=== PATIENT | male | born 1955 | race Hispanic/Latino ===

== ENCOUNTER 2020-04-11 22:48 | Inpatient (IN) | payer OTHER ==
[~2020-04-11] VITALS: Ht 167.6 cm; Wt 60.8 kg
[2020-04-11] MEDS ORDERED: ZOSYN 3.375GM+NS 50ML 50 ML IV ONE (23:27)
[2020-04-11 23:38] LABS: BASOPHILS % (AUTO) 0.6 % (0.0-5.0); EOSINOPHILS % (AUTO) 0.6 % (0.0-8.0); HEMATOCRIT 36.9 % (42-54); LYMPHOCYTES % (AUTO) 19.8 % (21.0-51.0); MEAN CORPUSCULAR HEMOGLOBIN 30.3 pg (27.0-33.0); MEAN CORPUSCULAR HGB CONC 32.8 g/dL (32.0-36.0); MEAN CORPUSCULAR VOLUME 92.5 fL (79-99); MONOCYTES % (AUTO) 8.2 % (3.0-13.0); NEUTROPHILS % (AUTO) 70.6 % (40.0-77.0); PLATELET COUNT (AUTO) 360 K/uL (130-400); RED BLOOD CELL COUNT(AUTO) 3.99 MIL/uL (4.50-6.20); RED CELL DISTRIBUTION WIDTH 11.9 % (11.0-15.5); WHITE BLOOD COUNT (AUTO) 8.9 K/uL (4.8-10.8)
[2020-04-11 23:53] LABS: CREATININE 1.1 mg/dL (0.5-1.5); POTASSIUM 4.1 mmol/L (3.5-5.1)
[2020-04-11 23:55] LABS: INR 1.04 (0.85-1.15); PROTHROMBIN TIME 11.3 SEC (9.6-11.6)
[2020-04-11 23:56] LABS: PARTIAL THROMBOPLASTIN TIME 29.1 SEC (26.3-35.5)
[2020-04-11 23:58] LABS: ALBUMIN 4.1 g/dL (3.5-5.0); BILIRUBIN,TOTAL 0.3 mg/dL (0.2-1.0); CRP QUANTITATIVE 32.8 mg/L (0.00-9.0); TOTAL PROTEIN, SERUM 8.9 g/dL (6.0-8.3)
[2020-04-12] MEDS ORDERED: LACTULOSE 20 GM/30 ML UDCUP PO PRN (03:00)
[2020-04-12] MEDS ORDERED: ACETAMINOPHEN 325 MG TAB PO PRN ×2 (03:00)
[2020-04-12] MEDS ORDERED: TEMAZEPAM 7.5 MG CAPSULE PO PRN (03:00)
[2020-04-12] MEDS ORDERED: ONDANSETRON HCL 4 MG/2 ML VIAL IV PRN (03:00)
[2020-04-12] MEDS ORDERED: ACETAMINOPHEN-CODEINE 300/30MG TAB PO PRN ×2 (03:00)
[2020-04-12] MEDS ORDERED: HEPARIN 25000 UNITS/250 ML D5W 250 ML IV SCH (03:00)
[2020-04-12] MEDS ORDERED: HEPARIN SODIUM 5000UNIT/ML 1ML VIAL ONE ×2 (03:53→18:03)
[2020-04-12] MEDS ORDERED: HEPARIN 25000 UNITS/250 ML D5W 250 ML IV ONE (03:53)
[2020-04-12] MEDS: LISINOPRIL 5 MG TABLET PO SCH ×2 (04:15→09:00)
[2020-04-12] MEDS: METOPROLOL TARTRATE 25 MG TAB PO SCH ×3 (04:15→20:24)
[2020-04-12] MEDS ORDERED: LABETALOL 20 MG/4 ML DISP.SYRIN IV PRN (04:15)
[2020-04-12] MEDS ORDERED: LORAZEPAM 2 MG/ML 1 ML VIAL IVP PRN (04:15)
[2020-04-12] MEDS: ATORVASTATIN CALCIUM 40 MG TABLET PO SCH ×2 (04:15→20:24)
[2020-04-12] MEDS ORDERED: CHLORDIAZEPOXIDE HCL 25 MG CAP PO PRN (04:15)
[2020-04-12] MEDS ORDERED: PHARMACY COMMUNICATION MISC PRN (04:15)
[2020-04-12] MEDS ORDERED: AMOX125T PO (04:49)
[2020-04-12] MEDS ORDERED: METF-446 PO (04:49)
[2020-04-12 05:03] LABS: BASOPHILS % (AUTO) 0.5 % (0.0-5.0); EOSINOPHILS % (AUTO) 0.3 % (0.0-8.0); HEMATOCRIT 34.1 % (42-54); LYMPHOCYTES % (AUTO) 14.1 % (21.0-51.0); MEAN CORPUSCULAR HEMOGLOBIN 30.1 pg (27.0-33.0); MEAN CORPUSCULAR HGB CONC 33.4 g/dL (32.0-36.0); NEUTROPHILS % (AUTO) 79.8 % (40.0-77.0); PLATELET COUNT (AUTO) 351 K/uL (130-400); RED BLOOD CELL COUNT(AUTO) 3.79 MIL/uL (4.50-6.20); RED CELL DISTRIBUTION WIDTH 11.7 % (11.0-15.5); WHITE BLOOD COUNT (AUTO) 10.9 K/uL (4.8-10.8)
[2020-04-12 05:05] LABS: HEMOGLOBIN A1C 6.3 % (4.0-6.0)
[2020-04-12] MEDS ORDERED: LISINOPRIL 5 MG TABLET ONE (05:06)
[2020-04-12] MEDS ORDERED: ATORVASTATIN CALCIUM 40 MG TABLET ONE (05:06)
[2020-04-12] MEDS ORDERED: METOPROLOL TARTRATE 25 MG TAB ONE (05:06)
[2020-04-12 05:27] LABS: CHOLESTEROL 168 mg/dL (<200); HDL CHOLESTEROL 52 mg/dL (29-71); LDL DIRECT 94 mg/dL (0-99); TRIGLYCERIDES 60 mg/dL (30-200)
[2020-04-12 05:51] LABS: ALCOHOL, BLOOD < 3 mg/dL (0-10)
[2020-04-12] MEDS: ASPIRIN 325 MG TABLET PO SCH (09:00)
[2020-04-12] MEDS: CILOSTAZOL 100 MG TAB PO SCH ×2 (09:00→20:24)
[2020-04-12] MEDS: FOLIC ACID 1 MG TABLET PO SCH (09:00)
[2020-04-12] MEDS: THIAMINE HCL 100 MG/ML 2ML VIAL IM SCH (09:00)
[2020-04-12] MEDS: MULTIVITAMIN TABLET PO SCH (09:00)
[2020-04-12] MEDS: FAMOTIDINE/PF 20 MG/2 ML VIAL IV SCH ×2 (09:00→20:26)
[2020-04-12 09:38] LABS: AMPHET/METH SCREEN,URINE NEGATIVE (NEGATIVE); BARBITURATE SCREEN, URINE NEGATIVE (NEGATIVE); BENZODIAZEPINES SCREEN,URINE NEGATIVE (NEGATIVE); CANNABINOID SCREEN,URINE NEGATIVE (NEGATIVE); COCAINE SCREEN,URINE NEGATIVE (NEGATIVE); OPIATE SCREEN,URINE NEGATIVE (NEGATIVE); PHENCYCLIDINE SCREEN,URINE NEGATIVE (NEGATIVE)
[2020-04-12] MEDS ORDERED: ASPIRIN 325 MG TABLET ONE (10:00)
[2020-04-12] MEDS ORDERED: FAMOTIDINE/PF 20 MG/2 ML VIAL IV ONE (10:01)
[2020-04-12] MEDS ORDERED: THIAMINE HCL 100 MG/ML 2ML VIAL ONE (10:01)
[2020-04-12] MEDS ORDERED: FOLIC ACID 1 MG TABLET ONE (10:01)
[2020-04-12] MEDS ORDERED: MULTIVITAMIN TABLET ONE (10:01)
[2020-04-12 11:00] VITALS: BP 164/79
[2020-04-12] MEDS ORDERED: IOHEXOL 350 MG/ML 100ML INFUS..BTL IV ONE (15:38)
[2020-04-12] MEDS ORDERED: IOHEXOL-350 50ML VIAL IV ONE (15:38)
[2020-04-12 16:00] VITALS: BP 145/76
[2020-04-12 16:03] LABS: INR 1.08 (0.85-1.15); PROTHROMBIN TIME 11.7 SEC (9.6-11.6)
[2020-04-12 16:05] LABS: PARTIAL THROMBOPLASTIN TIME 41.6 SEC (26.3-35.5)
[2020-04-12] MEDS: INSULIN HUMULIN R 100 UNIT/ML 3ML SQ SCH ×2 (16:30→20:25)
[2020-04-12] MEDS: SODIUM CHLORIDE 0.9% 1000ML 1,000 ML IV SCH (17:18)
[2020-04-12 21:45] VITALS: BP 141/73
[2020-04-12 23:54] VITALS: BP 124/72
[2020-04-13 04:12] VITALS: BP 125/71
[2020-04-13 05:55] LABS: BASOPHILS % (AUTO) 0.6 % (0.0-5.0); EOSINOPHILS % (AUTO) 0.6 % (0.0-8.0); HEMATOCRIT 32.9 % (42-54); LYMPHOCYTES % (AUTO) 19.8 % (21.0-51.0); MEAN CORPUSCULAR HEMOGLOBIN 30.2 pg (27.0-33.0); MEAN CORPUSCULAR HGB CONC 33.4 g/dL (32.0-36.0); MEAN CORPUSCULAR VOLUME 90.4 fL (79-99); MONOCYTES % (AUTO) 7.6 % (3.0-13.0); NEUTROPHILS % (AUTO) 71.1 % (40.0-77.0); PLATELET COUNT (AUTO) 328 K/uL (130-400); RED BLOOD CELL COUNT(AUTO) 3.64 MIL/uL (4.50-6.20); RED CELL DISTRIBUTION WIDTH 11.8 % (11.0-15.5); WHITE BLOOD COUNT (AUTO) 7.7 K/uL (4.8-10.8)
[2020-04-13] MEDS: INSULIN HUMULIN R 100 UNIT/ML 3ML SQ SCH ×4 (06:12→21:17)
[2020-04-13 07:30] VITALS: BP 131/74
[2020-04-13] MEDS: ASPIRIN 325 MG TABLET PO SCH (09:11)
[2020-04-13] MEDS: FOLIC ACID 1 MG TABLET PO SCH (09:12)
[2020-04-13] MEDS: MULTIVITAMIN TABLET PO SCH (09:13)
[2020-04-13] MEDS: FAMOTIDINE/PF 20 MG/2 ML VIAL IV SCH ×2 (09:15→20:06)
[2020-04-13] MEDS: THIAMINE HCL 100 MG/ML 2ML VIAL IM SCH (09:15)
[2020-04-13] MEDS: CILOSTAZOL 100 MG TAB PO SCH ×2 (09:17→20:02)
[2020-04-13] MEDS: METOPROLOL TARTRATE 25 MG TAB PO SCH ×2 (09:17→20:00)
[2020-04-13] MEDS: LISINOPRIL 5 MG TABLET PO SCH (09:17)
[2020-04-13 11:00] VITALS: BP 134/73
[2020-04-13 12:08] LABS: INR 1.12 (0.85-1.15); PROTHROMBIN TIME 12.1 SEC (9.6-11.6)
[2020-04-13 12:09] LABS: PARTIAL THROMBOPLASTIN TIME 66.1 SEC (26.3-35.5)
[2020-04-13 15:30] VITALS: BP 125/60
[2020-04-13 18:19] LABS: INR 1.09 (0.85-1.15); PROTHROMBIN TIME 11.8 SEC (9.6-11.6)
[2020-04-13 18:21] LABS: PARTIAL THROMBOPLASTIN TIME 41.6 SEC (26.3-35.5)
[2020-04-13 19:20] VITALS: BP 118/65
[2020-04-13] MEDS: ATORVASTATIN CALCIUM 40 MG TABLET PO SCH (20:00)
[2020-04-13] MEDS: SODIUM CHLORIDE 0.9% 1000ML 1,000 ML IV SCH ×2 (20:02→21:18)
[2020-04-13 23:42] VITALS: BP 101/67
[2020-04-14 04:02] VITALS: BP 143/73
[2020-04-14] MEDS: INSULIN HUMULIN R 100 UNIT/ML 3ML SQ SCH ×4 (05:48→20:43)
[2020-04-14 05:55] LABS: BASOPHILS % (AUTO) 0.4 % (0.0-5.0); EOSINOPHILS % (AUTO) 0.5 % (0.0-8.0); HEMATOCRIT 30.1 % (42-54); LYMPHOCYTES % (AUTO) 22.3 % (21.0-51.0); MEAN CORPUSCULAR HEMOGLOBIN 29.7 pg (27.0-33.0); MEAN CORPUSCULAR HGB CONC 33.2 g/dL (32.0-36.0); MEAN CORPUSCULAR VOLUME 89.3 fL (79-99); MONOCYTES % (AUTO) 8.8 % (3.0-13.0); NEUTROPHILS % (AUTO) 67.7 % (40.0-77.0); PLATELET COUNT (AUTO) 316 K/uL (130-400); RED BLOOD CELL COUNT(AUTO) 3.37 MIL/uL (4.50-6.20); RED CELL DISTRIBUTION WIDTH 11.8 % (11.0-15.5); WHITE BLOOD COUNT (AUTO) 7.5 K/uL (4.8-10.8)
[2020-04-14 06:05] LABS: CREATININE 1.1 mg/dL (0.5-1.5)
[2020-04-14 06:06] LABS: INR 1.09 (0.85-1.15); PROTHROMBIN TIME 11.8 SEC (9.6-11.6)
[2020-04-14 06:07] LABS: PARTIAL THROMBOPLASTIN TIME 29.3 SEC (26.3-35.5)
[2020-04-14 08:00] VITALS: BP 132/63
[2020-04-14] MEDS: THIAMINE HCL 100 MG/ML 2ML VIAL IM SCH (09:29)
[2020-04-14] MEDS: FOLIC ACID 1 MG TABLET PO SCH (09:30)
[2020-04-14] MEDS: MULTIVITAMIN TABLET PO SCH (09:30)
[2020-04-14] MEDS: FAMOTIDINE/PF 20 MG/2 ML VIAL IV SCH ×2 (09:31→20:42)
[2020-04-14] MEDS: ASPIRIN 325 MG TABLET PO SCH (09:31)
[2020-04-14] MEDS: LISINOPRIL 5 MG TABLET PO SCH (09:32)
[2020-04-14] MEDS: CILOSTAZOL 100 MG TAB PO SCH ×2 (09:32→20:42)
[2020-04-14] MEDS: METOPROLOL TARTRATE 25 MG TAB PO SCH ×2 (09:32→20:42)
[2020-04-14 11:41] VITALS: BP 149/72
[2020-04-14 16:00] VITALS: BP 128/71
[2020-04-14 19:10] VITALS: BP 148/73
[2020-04-14] MEDS: ATORVASTATIN CALCIUM 40 MG TABLET PO SCH (20:42)
[2020-04-14 23:51] VITALS: BP 104/67
[2020-04-15 03:31] VITALS: BP 110/63
[2020-04-15] MEDS: INSULIN HUMULIN R 100 UNIT/ML 3ML SQ SCH ×4 (05:42→20:29)
[2020-04-15 08:13] VITALS: BP 124/71
[2020-04-15] MEDS: ASPIRIN 325 MG TABLET PO SCH (09:51)
[2020-04-15] MEDS: MULTIVITAMIN TABLET PO SCH (09:51)
[2020-04-15] MEDS: LISINOPRIL 5 MG TABLET PO SCH (09:52)
[2020-04-15] MEDS: CILOSTAZOL 100 MG TAB PO SCH ×2 (09:52→20:23)
[2020-04-15] MEDS: METOPROLOL TARTRATE 25 MG TAB PO SCH ×2 (09:52→20:24)
[2020-04-15] MEDS: FAMOTIDINE/PF 20 MG/2 ML VIAL IV SCH ×2 (09:52→20:24)
[2020-04-15 11:58] VITALS: BP 119/70
[2020-04-15 16:29] VITALS: BP 137/59
[2020-04-15] MEDS: SODIUM CHLORIDE 0.9% 1000ML 1,000 ML IV SCH (18:21)
[2020-04-15 19:20] VITALS: BP 122/60
[2020-04-15] MEDS: ATORVASTATIN CALCIUM 40 MG TABLET PO SCH (20:23)
[2020-04-15 23:16] VITALS: BP 122/72
[2020-04-16] VITALS (12 sets, daily range): BP systolic 106–156; BP diastolic 50–76
[2020-04-16 04:59] LABS: APPEARANCE,URINE Clear (CLEAR); BILIRUBIN,URINE Negative (NEGATIVE); COLOR,URINE Yellow (YELLOW); GLUCOSE, URINE (UA) Negative (NEGATIVE); KETONES,URINE Negative (NEGATIVE); LEUKOCYTE ESTERASE ,URINE Negative (NEGATIVE); NITRATE,URINE Negative (NEGATIVE); OCCULT BLOOD,URINE Negative (NEGATIVE); PROTEIN,URINE Negative (NEGATIVE); UROBILINOGEN,URINE 0.2 mg/dL (0.2-1.0)
[2020-04-16 05:34] LABS: BASOPHILS % (AUTO) 0.8 % (0.0-5.0); EOSINOPHILS % (AUTO) 1.1 % (0.0-8.0); HEMATOCRIT 30.6 % (42-54); LYMPHOCYTES % (AUTO) 20.1 % (21.0-51.0); MEAN CORPUSCULAR HGB CONC 33.3 g/dL (32.0-36.0); MONOCYTES % (AUTO) 12.4 % (3.0-13.0); NEUTROPHILS % (AUTO) 65.3 % (40.0-77.0); PLATELET COUNT (AUTO) 339 K/uL (130-400); RED CELL DISTRIBUTION WIDTH 11.9 % (11.0-15.5); WHITE BLOOD COUNT (AUTO) 6.2 K/uL (4.8-10.8)
[2020-04-16] MEDS: INSULIN HUMULIN R 100 UNIT/ML 3ML SQ SCH ×4 (05:44→20:50)
[2020-04-16] MEDS: SODIUM CHLORIDE 0.9% 1000ML 1,000 ML IV SCH ×2 (07:06→20:05)
[2020-04-16] MEDS: CILOSTAZOL 100 MG TAB PO SCH ×2 (10:59→20:04)
[2020-04-16] MEDS: METOPROLOL TARTRATE 25 MG TAB PO SCH ×2 (10:59→20:05)
[2020-04-16] MEDS: MULTIVITAMIN TABLET PO SCH (10:59)
[2020-04-16] MEDS: ASPIRIN 325 MG TABLET PO SCH (10:59)
[2020-04-16] MEDS: FAMOTIDINE/PF 20 MG/2 ML VIAL IV SCH ×2 (11:00→20:04)
[2020-04-16] MEDS: LISINOPRIL 5 MG TABLET PO SCH (11:00)
[2020-04-16] MEDS ORDERED: LIDOCAINE HCL 2% 20ML ONE (11:25)
[2020-04-16] MEDS ORDERED: NITROGLYCERIN 2 MG/VIAL VIAL IV ONE (11:25)
[2020-04-16] MEDS ORDERED: IODIXANOL 320 MG/ML 100 ML VIAL ONE (11:25)
[2020-04-16] MEDS ORDERED: MIDAZOLAM HCL 1 MG/ML 2ML VIAL ONE (11:35)
[2020-04-16] MEDS ORDERED: FENTANYL CITRATE PF 50 MCG/1 ML 2ML VIAL ONE (11:36)
[2020-04-16] MEDS ORDERED: HEPARIN SODIUM 1000UNIT/ML 10ML VIAL ONE (12:24)
[2020-04-16] MEDS ORDERED: CLOPIDOGREL BISULFATE 300 MG TAB ONE (12:24)
[2020-04-16] MEDS ORDERED: ASPIRIN 325MG EC TAB 325 MG TABLET.DR PO ONE (12:25)
[2020-04-16] MEDS: ATORVASTATIN CALCIUM 40 MG TABLET PO SCH (20:04)
[2020-04-17] VITALS: BP 96/54
[2020-04-17 04:00] VITALS: BP 129/66
[2020-04-17 04:54] LABS: HEMATOCRIT 32.4 % (42-54); MEAN CORPUSCULAR HEMOGLOBIN 30.5 pg (27.0-33.0); MEAN CORPUSCULAR HGB CONC 33.6 g/dL (32.0-36.0); MEAN CORPUSCULAR VOLUME 90.8 fL (79-99); RED BLOOD CELL COUNT(AUTO) 3.57 MIL/uL (4.50-6.20); RED CELL DISTRIBUTION WIDTH 11.9 % (11.0-15.5); WHITE BLOOD COUNT (AUTO) 8.7 K/uL (4.8-10.8)
[2020-04-17 05:08] LABS: CREATININE 1.3 mg/dL (0.5-1.5); POTASSIUM 3.8 mmol/L (3.5-5.1)
[2020-04-17] MEDS: INSULIN HUMULIN R 100 UNIT/ML 3ML SQ SCH (05:47)
[2020-04-17] MEDS ORDERED: CLOP75TA14 PO (07:45)
[2020-04-17] MEDS ORDERED: LISI-809 PO (07:45)
[2020-04-17] MEDS ORDERED: ATOR40TA69 PO (07:45)
[2020-04-17] MEDS ORDERED: METO-391 PO (07:45)
[2020-04-17 08:25] VITALS: BP 127/71
[2020-04-17] MEDS ORDERED: ASPIRIN 81MG TAB.CHEW PO SCH (09:00)
[2020-04-17] MEDS ORDERED: CLOPIDOGREL BISULFATE 75 MG TAB PO SCH (09:00)
[2020-04-17] MEDS: LISINOPRIL 5 MG TABLET PO SCH (10:17)
[2020-04-17] MEDS: CILOSTAZOL 100 MG TAB PO SCH (10:17)
[2020-04-17] MEDS: FAMOTIDINE/PF 20 MG/2 ML VIAL IV SCH (10:17)
[2020-04-17] MEDS: MULTIVITAMIN TABLET PO SCH (10:18)
[2020-04-17] MEDS: METOPROLOL TARTRATE 25 MG TAB PO SCH (10:18)
[2020-04-17 11:00] VITALS: BP 143/73
== END 2020-04-17 13:50 | disposition home or self-care (01) | DRG 301 ==
LOC: EDH 22:48 → EDHIP 22:49 → 3BH 04-12 11:10
PROVIDERS: ADMIT Internal Medicine; ATTEND Internal Medicine
PROC: B4101ZZ Fluoroscopy of Abdominal Aorta using Low Osmolar Contrast (ICD-10-PCS; principal; 2020-04-16)
PROC: B41F1ZZ Fluoroscopy of Right Lower Extremity Arteries using Low Osmolar Contrast (ICD-10-PCS; 2020-04-16)
PROC: 04JY3ZZ Inspection of Lower Artery, Percutaneous Approach (ICD-10-PCS; 2020-04-16)
DX: E11.52 Type 2 diabetes mellitus with diabetic peripheral angiopathy with gangrene (principal); I10 Essential (primary) hypertension; F10.10 Alcohol abuse, uncomplicated; E11.40 Type 2 diabetes mellitus with diabetic neuropathy, unspecified; E78.5 Hyperlipidemia, unspecified; H54.61 Unqualified visual loss, right eye, normal vision left eye; E11.36 Type 2 diabetes mellitus with diabetic cataract; Z79.84 Long term (current) use of oral hypoglycemic drugs; Z87.891 Personal history of nicotine dependence; Z91.19 Patient's noncompliance with other medical treatment and regimen
CPT/HCPCS: 36415; 37228; 37232; 73630; 75635; 75716; 80048; 80053; 80061; 80305; 81003; 82948; 83036; 83605; 84145; 85025; 85027; 85347; 85610; 85730; 86140; 87040; 93925; 99156; 99157; C1769; C1893; C1894; G0378; J1644; J1815; J2250; J2543; J3010; J3411; J3490; J7030; Q9967

== ENCOUNTER 2020-07-16 15:11 | Inpatient (IN) | payer MEDICAID, OTHER ==
[~2020-07-16] VITALS: Ht 170.2 cm; Wt 51.5 kg
[~2020-07-16 15:11] MED LIST: ATOR40TA69 PO; CLOP75TA14 PO; LISI-809 PO; METF-446 PO; METO-391 PO
[2020-07-16 15:47] LABS: BASOPHILS % (AUTO) 0.2 % (0.0-5.0); EOSINOPHILS % (AUTO) 0.1 % (0.0-8.0); HEMATOCRIT 28.1 % (42-54); LYMPHOCYTES % (AUTO) 6.8 % (21.0-51.0); MEAN CORPUSCULAR HEMOGLOBIN 27.9 pg (27.0-33.0); MEAN CORPUSCULAR HGB CONC 32.4 g/dL (32.0-36.0); MEAN CORPUSCULAR VOLUME 86.2 fL (79-99); MONOCYTES % (AUTO) 5.4 % (3.0-13.0); PLATELET COUNT (AUTO) 515 K/uL (130-400); RED BLOOD CELL COUNT(AUTO) 3.26 MIL/uL (4.50-6.20); RED CELL DISTRIBUTION WIDTH 12.1 % (11.0-15.5); WHITE BLOOD COUNT (AUTO) 19.3 K/uL (4.8-10.8)
[2020-07-16 16:08] LABS: BILIRUBIN,TOTAL 0.4 mg/dL (0.2-1.0); TOTAL PROTEIN, SERUM 8.6 g/dL (6.0-8.3)
[2020-07-16] MEDS ORDERED: CLINDAMYCIN IVPB 600MG/50ML 50 ML IV ONE (16:41)
[2020-07-16] MEDS: ZOSYN 3.375GM+NS 50ML 50 ML IV SCH (17:30)
[2020-07-16] MEDS ORDERED: VANCOMYCIN PROTOCOL PER PHARMACY IV SCH (18:15)
[2020-07-16] MEDS ORDERED: ASPIRIN 81MG CHEW TAB PO SCH (18:15)
[2020-07-16 18:20] LABS: HEMOGLOBIN A1C 9.5 % (4.0-6.0)
[2020-07-16] MEDS: VANCOMYCIN KIT 250 ML IV SCH (20:00)
[2020-07-16] MEDS ORDERED: 0.9% NACL 50ML 50 ML IV ONE (20:38)
[2020-07-17] MEDS: ZOSYN 3.375GM+NS 50ML 50 ML IV SCH ×3 (01:30→20:50)
[2020-07-17] MEDS ORDERED: 0.9%NACL 100ML 100 ML IV ONE (04:28)
[2020-07-17] MEDS: VANCOMYCIN KIT 250 ML IV SCH ×2 (08:00→20:50)
[2020-07-17] MEDS: CLOPIDOGREL 75MG TAB PO SCH (09:00)
[2020-07-17] MEDS: ASPIRIN 81MG CHEW TAB PO SCH (09:00)
[2020-07-17 10:12] VITALS: BP 153/73
[2020-07-17 10:34] LABS: BASOPHILS % (AUTO) 0.2 % (0.0-5.0); EOSINOPHILS % (AUTO) 0.3 % (0.0-8.0); HEMATOCRIT 27.8 % (42-54); MEAN CORPUSCULAR HEMOGLOBIN 27.8 pg (27.0-33.0); MEAN CORPUSCULAR HGB CONC 32.4 g/dL (32.0-36.0); MEAN CORPUSCULAR VOLUME 85.8 fL (79-99); MONOCYTES % (AUTO) 2.1 % (3.0-13.0); PLATELET COUNT (AUTO) 479 K/uL (130-400); RED BLOOD CELL COUNT(AUTO) 3.24 MIL/uL (4.50-6.20); RED CELL DISTRIBUTION WIDTH 12.3 % (11.0-15.5); WHITE BLOOD COUNT (AUTO) 14.3 K/uL (4.8-10.8)
[2020-07-17 10:55] LABS: POTASSIUM 4.3 mmol/L (3.5-5.1)
[2020-07-17] MEDS: HYDROCODONE/ACETAMINOPHEN 5/325 MG TAB PO PRN ×2 (14:58→20:58)
[2020-07-17 16:00] VITALS: BP 141/76
[2020-07-17 20:13] VITALS: BP 117/60
[2020-07-17] MEDS ORDERED: 0.9%NACL 250ML 250 ML IV ONE ×2 (20:37→21:02)
[2020-07-17] MEDS: ATORVASTATIN 20 MG TABLET PO SCH (20:50)
[2020-07-17 23:55] VITALS: BP 113/56
[2020-07-18 04:00] VITALS: BP 105/56
[2020-07-18] MEDS: ZOSYN 3.375GM+NS 50ML 50 ML IV SCH ×3 (04:00→16:52)
[2020-07-18 04:37] LABS: BASOPHILS % (AUTO) 0.4 % (0.0-5.0); EOSINOPHILS % (AUTO) 1.1 % (0.0-8.0); HEMATOCRIT 26.7 % (42-54); LYMPHOCYTES % (AUTO) 8.8 % (21.0-51.0); MEAN CORPUSCULAR HEMOGLOBIN 27.1 pg (27.0-33.0); MEAN CORPUSCULAR HGB CONC 31.8 g/dL (32.0-36.0); MONOCYTES % (AUTO) 5.5 % (3.0-13.0); NEUTROPHILS % (AUTO) 83.6 % (40.0-77.0); PLATELET COUNT (AUTO) 448 K/uL (130-400); RED BLOOD CELL COUNT(AUTO) 3.14 MIL/uL (4.50-6.20); RED CELL DISTRIBUTION WIDTH 12.2 % (11.0-15.5)
[2020-07-18 05:05] LABS: CREATININE 0.9 mg/dL (0.5-1.5); POTASSIUM 4.2 mmol/L (3.5-5.1)
[2020-07-18 08:00] VITALS: BP 129/64
[2020-07-18] MEDS ORDERED: 0.9%NACL 250ML 250 ML IV ONE ×3 (09:04→21:16)
[2020-07-18] MEDS: CLOPIDOGREL 75MG TAB PO SCH (10:11)
[2020-07-18] MEDS: VANCOMYCIN KIT 250 ML IV SCH ×3 (10:12→22:42)
[2020-07-18] MEDS: ASPIRIN 81MG CHEW TAB PO SCH (10:12)
[2020-07-18] MEDS: HYDROCODONE/ACETAMINOPHEN 5/325 MG TAB PO PRN ×2 (10:14→18:20)
[2020-07-18 12:00] VITALS: BP 96/52
[2020-07-18 16:00] VITALS: BP 134/62
[2020-07-18] MEDS ORDERED: POTASSIUM CHLORIDE 20MEQ/100ML 100 ML IV PRN ×2 (17:45)
[2020-07-18] MEDS ORDERED: GLUCAGON 1MG KIT 1 MG ML IM PRN (17:45)
[2020-07-18] MEDS ORDERED: KCL 20 MEQ ERTAB PO PRN (17:45)
[2020-07-18] MEDS ORDERED: POTASSIUM CHLORIDE 10% ELIXIR 20 MEQ/15 ML UDCUP PO PRN (17:45)
[2020-07-18] MEDS ORDERED: DEXTROSE 50%-WATER 50 ML DISP.SYRIN IV PRN (17:45)
[2020-07-18 19:00] VITALS: BP 115/53
[2020-07-18] MEDS: INSULIN GLARGINE 100 UNITS/ML 10 ML VIAL SQ SCH (21:00)
[2020-07-18] MEDS: ATORVASTATIN 20 MG TABLET PO SCH (21:38)
[2020-07-18 23:34] VITALS: BP 134/56
[2020-07-19] VITALS (21 sets, daily range): BP systolic 115–145; BP diastolic 52–70
[2020-07-19] MEDS: ZOSYN 3.375GM+NS 50ML 50 ML IV SCH ×3 (01:55→17:30)
[2020-07-19] MEDS ORDERED: 0.9%NACL 250ML 250 ML IV ONE (06:15)
[2020-07-19] MEDS: VANCOMYCIN KIT 250 ML IV SCH ×3 (07:39→22:00)
[2020-07-19] MEDS: ASPIRIN 81MG CHEW TAB PO SCH (09:00)
[2020-07-19] MEDS: CLOPIDOGREL 75MG TAB PO SCH (09:00)
[2020-07-19] MEDS ORDERED: MIDAZOLAM HCL 1 MG/ML 2ML VIAL ONE (17:58)
[2020-07-19] MEDS ORDERED: FENTANYL CITRATE PF 50 MCG/1 ML 2ML VIAL ONE (17:58)
[2020-07-19] MEDS ORDERED: PROPOFOL 10 MG/ML 20ML VIAL IV ONE (17:58)
[2020-07-19] MEDS ORDERED: ROCURONIUM 10MG/1ML SYR 10 MG/ML ML ONE (17:58)
[2020-07-19] MEDS ORDERED: LIDOCAINE HCL MPF 1% 5ML VIAL ONE (17:58)
[2020-07-19] MEDS ORDERED: EPHEDRINE SULFATE 50 MG/ML AMPULE ONE (18:13)
[2020-07-19] MEDS ORDERED: MEPERIDINE-PF 25 MG/ML SYG ONE (19:34)
[2020-07-19] MEDS ORDERED: ESMOLOL HCL 10 MG/ML 10 ML VIAL ONE (19:59)
[2020-07-19] MEDS ORDERED: MORPHINE 4 MG SYG ONE (21:12)
[2020-07-19] MEDS: ATORVASTATIN 20 MG TABLET PO SCH (21:14)
[2020-07-19] MEDS: INSULIN GLARGINE 100 UNITS/ML 10 ML VIAL SQ SCH (21:18)
[2020-07-19] MEDS ORDERED: HYDROCODONE/ACETAMINOPHEN 5/325 MG TAB ONE (22:54)
[2020-07-20] MEDS ORDERED: HYDROCODONE/ACETAMINOPHEN 5/325 MG TAB PO PRN ×2 (00:45)
[2020-07-20] MEDS: ZOSYN 3.375GM+NS 50ML 50 ML IV SCH (01:10)
[2020-07-20] MEDS: MORPHINE 4 MG SYG IVP PRN ×2 (01:10→10:22)
[2020-07-20 04:13] VITALS: BP 116/66
[2020-07-20] MEDS ORDERED: HYDROMORPHONE 1 MG INJ ONE (04:29)
[2020-07-20] MEDS ORDERED: HYDROMORPHONE 2 MG VIAL (2MG/ML) IVP SCH (04:30)
[2020-07-20 04:35] LABS: BASOPHILS % (AUTO) 0.5 % (0.0-5.0); EOSINOPHILS % (AUTO) 0.3 % (0.0-8.0); HEMATOCRIT 22.6 % (42-54); LYMPHOCYTES % (AUTO) 10.4 % (21.0-51.0); MEAN CORPUSCULAR HEMOGLOBIN 27.8 pg (27.0-33.0); MEAN CORPUSCULAR HGB CONC 32.7 g/dL (32.0-36.0); NEUTROPHILS % (AUTO) 80.3 % (40.0-77.0); PLATELET COUNT (AUTO) 414 K/uL (130-400); RED BLOOD CELL COUNT(AUTO) 2.66 MIL/uL (4.50-6.20); RED CELL DISTRIBUTION WIDTH 12.6 % (11.0-15.5)
[2020-07-20] MEDS: VANCOMYCIN KIT 250 ML IV SCH (04:42)
[2020-07-20 04:48] LABS: ALBUMIN 2.2 g/dL (3.5-5.0); BILIRUBIN,TOTAL 0.5 mg/dL (0.2-1.0); CREATININE 4.2 mg/dL (0.5-1.5); POTASSIUM 4.2 mmol/L (3.5-5.1); TOTAL PROTEIN, SERUM 7.1 g/dL (6.0-8.3)
[2020-07-20 07:30] VITALS: BP 128/66
[2020-07-20] MEDS ORDERED: RENAL DOSE IV SCH (08:15)
[2020-07-20] MEDS ORDERED: ZOSYN 3.375GM+NS 50ML 50 ML IV SCH (09:00)
[2020-07-20] MEDS: ASPIRIN 81MG CHEW TAB PO SCH (10:16)
[2020-07-20 10:17] LABS: CREATININE 4.5 mg/dL (0.5-1.5)
[2020-07-20] MEDS: NACL 0.9% 1000ML 1,000 ML IV SCH ×2 (10:21→19:53)
[2020-07-20 11:00] VITALS: BP 149/71
[2020-07-20 12:58] LABS: CREATININE 4.5 mg/dL (0.5-1.5); POTASSIUM 4.2 mmol/L (3.5-5.1)
[2020-07-20] MEDS: LACTULOSE 20 GM/30 ML UDCUP PO SCH ×2 (14:53→19:25)
[2020-07-20] MEDS: HYDROMORPHONE 0.5 MG SYG (0.5MG/0.5ML) IVP PRN ×2 (14:54→21:33)
[2020-07-20 16:00] VITALS: BP 142/70
[2020-07-20] MEDS: ATORVASTATIN 20 MG TABLET PO SCH (19:53)
[2020-07-20] MEDS: INSULIN GLARGINE 100 UNITS/ML 10 ML VIAL SQ SCH (19:56)
[2020-07-20 20:00] VITALS: BP 162/72
[2020-07-20] MEDS ORDERED: GABAPENTIN 300 MG CAPSULE PO SCH (22:00)
[2020-07-21] VITALS: BP 140/64
[2020-07-21] MEDS: HYDROMORPHONE 0.5 MG SYG (0.5MG/0.5ML) IVP PRN (02:46)
[2020-07-21 04:00] VITALS: BP 136/72
[2020-07-21 07:43] VITALS: BP 155/75
[2020-07-21 09:41] LABS: BASOPHILS % (AUTO) 0.2 % (0.0-5.0); EOSINOPHILS % (AUTO) 0.2 % (0.0-8.0); HEMATOCRIT 23.2 % (42-54); LYMPHOCYTES % (AUTO) 5.5 % (21.0-51.0); MEAN CORPUSCULAR HEMOGLOBIN 26.9 pg (27.0-33.0); MEAN CORPUSCULAR HGB CONC 31.9 g/dL (32.0-36.0); MEAN CORPUSCULAR VOLUME 84.4 fL (79-99); MONOCYTES % (AUTO) 6.7 % (3.0-13.0); PLATELET COUNT (AUTO) 412 K/uL (130-400); RED BLOOD CELL COUNT(AUTO) 2.75 MIL/uL (4.50-6.20); RED CELL DISTRIBUTION WIDTH 12.7 % (11.0-15.5); WHITE BLOOD COUNT (AUTO) 12.4 K/uL (4.8-10.8)
[2020-07-21] MEDS: LACTULOSE 20 GM/30 ML UDCUP PO SCH ×2 (09:49→21:00)
[2020-07-21] MEDS: ASPIRIN 81MG CHEW TAB PO SCH (09:49)
[2020-07-21 10:27] LABS: % IRON SATURATION 10.4 % (30-44)
[2020-07-21 10:54] LABS: ALBUMIN 2.2 g/dL (3.5-5.0); BILIRUBIN,TOTAL 0.4 mg/dL (0.2-1.0); CREATININE 5.3 mg/dL (0.5-1.5); POTASSIUM 4.1 mmol/L (3.5-5.1); TOTAL PROTEIN, SERUM 7.1 g/dL (6.0-8.3)
[2020-07-21 11:50] VITALS: BP 151/70
[2020-07-21] MEDS ORDERED: COMPOUND IV MISC 1 EACH IVSOLN MISC PRN (13:15)
[2020-07-21] MEDS: IRON SUCROSE COMPLEX 100 MG in 0.9% NACL 50ML 50 ML IV SCH (14:24)
[2020-07-21] MEDS ORDERED: EPOETIN ALFA-EPBX (NON-ESRD) 10,000 UNIT/ML VIAL SQ SCH (15:00)
[2020-07-21 15:53] VITALS: BP 167/71
[2020-07-21 20:20] VITALS: BP 164/71
[2020-07-21] MEDS: ATORVASTATIN 20 MG TABLET PO SCH (21:44)
[2020-07-21] MEDS: INSULIN GLARGINE 100 UNITS/ML 10 ML VIAL SQ SCH (21:54)
[2020-07-22 00:20] VITALS: BP 135/70
[2020-07-22] MEDS: HYDROMORPHONE 0.5 MG SYG (0.5MG/0.5ML) IVP PRN ×2 (02:43→21:30)
[2020-07-22 04:24] VITALS: BP 127/71
[2020-07-22] MEDS ORDERED: HYDROMORPHONE 2 MG VIAL (2MG/ML) IVP ONE (05:15)
[2020-07-22 05:44] LABS: BASOPHILS % (AUTO) 0.3 % (0.0-5.0); EOSINOPHILS % (AUTO) 0.1 % (0.0-8.0); HEMATOCRIT 22.9 % (42-54); LYMPHOCYTES % (AUTO) 8.9 % (21.0-51.0); MEAN CORPUSCULAR HEMOGLOBIN 26.9 pg (27.0-33.0); MEAN CORPUSCULAR HGB CONC 31.9 g/dL (32.0-36.0); MEAN CORPUSCULAR VOLUME 84.5 fL (79-99); MONOCYTES % (AUTO) 7.6 % (3.0-13.0); NEUTROPHILS % (AUTO) 82.7 % (40.0-77.0); PLATELET COUNT (AUTO) 442 K/uL (130-400); RED BLOOD CELL COUNT(AUTO) 2.71 MIL/uL (4.50-6.20); RED CELL DISTRIBUTION WIDTH 12.8 % (11.0-15.5); WHITE BLOOD COUNT (AUTO) 11.2 K/uL (4.8-10.8)
[2020-07-22 06:03] LABS: ALBUMIN 2.2 g/dL (3.5-5.0); BILIRUBIN,TOTAL 0.4 mg/dL (0.2-1.0); CREATININE 5.7 mg/dL (0.5-1.5); POTASSIUM 4.1 mmol/L (3.5-5.1); TOTAL PROTEIN, SERUM 7.2 g/dL (6.0-8.3)
[2020-07-22 07:26] VITALS: BP 144/73
[2020-07-22] MEDS: IRON SUCROSE COMPLEX 100 MG in 0.9% NACL 50ML 50 ML IV SCH (08:28)
[2020-07-22] MEDS: APAP-CODEINE 300/30MG TAB PO PRN ×3 (08:30→23:29)
[2020-07-22] MEDS: ASPIRIN 81MG CHEW TAB PO SCH (08:31)
[2020-07-22] MEDS: LACTULOSE 20 GM/30 ML UDCUP PO SCH (08:44)
[2020-07-22] MEDS ORDERED: HEPARIN 5,000 UNIT VIAL SQ SCH (11:15)
[2020-07-22 11:34] VITALS: BP 156/69
[2020-07-22] MEDS: HEPARIN 5,000 UNIT VIAL SQ SCH ×2 (12:15→21:41)
[2020-07-22] MEDS ORDERED: AMLODIPINE 5 MG TAB PO SCH (16:00)
[2020-07-22 16:28] VITALS: BP 143/69
[2020-07-22 20:24] VITALS: BP 142/71
[2020-07-22] MEDS: ATORVASTATIN 20 MG TABLET PO SCH (21:30)
[2020-07-22] MEDS: INSULIN GLARGINE 100 UNITS/ML 10 ML VIAL SQ SCH (21:42)
[2020-07-22] MEDS ORDERED: HYDROMORPHONE 0.5 MG SYG (0.5MG/0.5ML) IVP ONE (22:00)
[2020-07-23] VITALS (7 sets, daily range): BP systolic 101–145; BP diastolic 55–75
[2020-07-23] MEDS: APAP-CODEINE 300/30MG TAB PO PRN ×2 (04:43→17:08)
[2020-07-23 04:54] LABS: HEMATOCRIT 22.6 % (42-54); MEAN CORPUSCULAR HEMOGLOBIN 26.7 pg (27.0-33.0); MEAN CORPUSCULAR HGB CONC 31.4 g/dL (32.0-36.0); PLATELET COUNT (AUTO) 453 K/uL (130-400); RED BLOOD CELL COUNT(AUTO) 2.66 MIL/uL (4.50-6.20); RED CELL DISTRIBUTION WIDTH 12.8 % (11.0-15.5); WHITE BLOOD COUNT (AUTO) 10.3 K/uL (4.8-10.8)
[2020-07-23 05:00] LABS: CREATININE 6.2 mg/dL (0.5-1.5); PHOSPHORUS 5.8 mg/dL (2.5-4.9); POTASSIUM 4.2 mmol/L (3.5-5.1)
[2020-07-23 05:29] LABS: BASOPHILS % (MANUAL) 1 % (0-2); LYMPHOCYTES % (MANUAL) 11 % (22-44); MAN.DIFF COMMENT-IMPRESSION MANUAL DIFFERENTIAL; MONOCYTES % (MANUAL) 7 % (2-9); PLATELET MORPHOLOGY COMMENT ADEQUATE; SEGMENTED NEUTROPHILS % 81 % (40-70)
[2020-07-23] MEDS: HEPARIN 5,000 UNIT VIAL SQ SCH ×2 (09:00→21:19)
[2020-07-23] MEDS: AMLODIPINE 5 MG TAB PO SCH (09:29)
[2020-07-23] MEDS: IRON SUCROSE COMPLEX 100 MG in 0.9% NACL 50ML 50 ML IV SCH (09:30)
[2020-07-23] MEDS: ASPIRIN 81MG CHEW TAB PO SCH (09:30)
[2020-07-23] MEDS: HYDROMORPHONE 0.5 MG SYG (0.5MG/0.5ML) IVP PRN ×2 (15:58→23:04)
[2020-07-23] MEDS: ATORVASTATIN 20 MG TABLET PO SCH (21:09)
[2020-07-23] MEDS: INSULIN GLARGINE 100 UNITS/ML 10 ML VIAL SQ SCH (21:20)
[2020-07-24] VITALS (10 sets, daily range): BP systolic 114–146; BP diastolic 63–73
[2020-07-24 05:02] LABS: BASOPHILS % (AUTO) 0.5 % (0.0-5.0); EOSINOPHILS % (AUTO) 0.9 % (0.0-8.0); HEMATOCRIT 21.3 % (42-54); LYMPHOCYTES % (AUTO) 10.1 % (21.0-51.0); MEAN CORPUSCULAR HEMOGLOBIN 26.7 pg (27.0-33.0); MEAN CORPUSCULAR HGB CONC 31.5 g/dL (32.0-36.0); MEAN CORPUSCULAR VOLUME 84.9 fL (79-99); PLATELET COUNT (AUTO) 452 K/uL (130-400); RED BLOOD CELL COUNT(AUTO) 2.51 MIL/uL (4.50-6.20); RED CELL DISTRIBUTION WIDTH 12.7 % (11.0-15.5); WHITE BLOOD COUNT (AUTO) 8.6 K/uL (4.8-10.8)
[2020-07-24 05:07] LABS: CREATININE 6.4 mg/dL (0.5-1.5); POTASSIUM 4.5 mmol/L (3.5-5.1)
[2020-07-24 07:17] LABS: HEMATOCRIT 20.9 % (42-54)
[2020-07-24] MEDS: HEPARIN 5,000 UNIT VIAL SQ SCH (09:00)
[2020-07-24] MEDS: ASPIRIN 81MG CHEW TAB PO SCH (09:00)
[2020-07-24] MEDS: AMLODIPINE 5 MG TAB PO SCH (09:26)
[2020-07-24] MEDS: IRON SUCROSE COMPLEX 100 MG in 0.9% NACL 50ML 50 ML IV SCH (09:36)
[2020-07-24] MEDS ORDERED: 0.9%NACL 250ML 250 ML IV ONE (12:59)
[2020-07-24] MEDS: INSULIN GLARGINE 100 UNITS/ML 10 ML VIAL SQ SCH (20:07)
[2020-07-24] MEDS: ATORVASTATIN 20 MG TABLET PO SCH (20:10)
[2020-07-24] MEDS: APAP-CODEINE 300/30MG TAB PO PRN (20:12)
[2020-07-24] MEDS: HYDROMORPHONE 0.5 MG SYG (0.5MG/0.5ML) IVP PRN (21:44)
[2020-07-25 03:48] VITALS: BP 139/67
[2020-07-25 05:24] LABS: BASOPHILS % (AUTO) 0.5 % (0.0-5.0); EOSINOPHILS % (AUTO) 0.8 % (0.0-8.0); HEMATOCRIT 27.6 % (42-54); LYMPHOCYTES % (AUTO) 13.4 % (21.0-51.0); MEAN CORPUSCULAR HEMOGLOBIN 27.5 pg (27.0-33.0); MEAN CORPUSCULAR HGB CONC 31.5 g/dL (32.0-36.0); MEAN CORPUSCULAR VOLUME 87.3 fL (79-99); MONOCYTES % (AUTO) 8.7 % (3.0-13.0); NEUTROPHILS % (AUTO) 76.3 % (40.0-77.0); PLATELET COUNT (AUTO) 481 K/uL (130-400); RED BLOOD CELL COUNT(AUTO) 3.16 MIL/uL (4.50-6.20); WHITE BLOOD COUNT (AUTO) 9.1 K/uL (4.8-10.8)
[2020-07-25] MEDS: HYDROMORPHONE 0.5 MG SYG (0.5MG/0.5ML) IVP PRN (05:42)
[2020-07-25 05:45] LABS: CREATININE 6.6 mg/dL (0.5-1.5)
[2020-07-25] MEDS: AMLODIPINE 5 MG TAB PO SCH (08:14)
[2020-07-25] MEDS: ASPIRIN 81MG CHEW TAB PO SCH (08:14)
[2020-07-25] MEDS: IRON SUCROSE COMPLEX 100 MG in 0.9% NACL 50ML 50 ML IV SCH (08:14)
[2020-07-25 10:00] VITALS: BP 128/66
[2020-07-25 12:38] VITALS: BP 143/76
[2020-07-25 19:06] VITALS: BP 131/58
[2020-07-25 19:40] VITALS: BP 139/70
[2020-07-25] MEDS: ATORVASTATIN 20 MG TABLET PO SCH (20:33)
[2020-07-25] MEDS: INSULIN GLARGINE 100 UNITS/ML 10 ML VIAL SQ SCH (20:34)
[2020-07-25] MEDS: APAP-CODEINE 300/30MG TAB PO PRN (20:39)
[2020-07-26] VITALS (7 sets, daily range): BP systolic 125–149; BP diastolic 58–80
[2020-07-26] MEDS: APAP-CODEINE 300/30MG TAB PO PRN ×2 (00:35→20:54)
[2020-07-26 01:04] LABS: CREATININE,URINE RANDOM 35 mg/dL (30-135); SODIUM,URINE RANDOM 49 mmol/l (40-220)
[2020-07-26 05:21] LABS: BASOPHILS % (AUTO) 0.6 % (0.0-5.0); EOSINOPHILS % (AUTO) 1.4 % (0.0-8.0); HEMATOCRIT 25.8 % (42-54); LYMPHOCYTES % (AUTO) 13.1 % (21.0-51.0); MEAN CORPUSCULAR HEMOGLOBIN 27.2 pg (27.0-33.0); MEAN CORPUSCULAR HGB CONC 31.4 g/dL (32.0-36.0); MEAN CORPUSCULAR VOLUME 86.6 fL (79-99); MONOCYTES % (AUTO) 9.6 % (3.0-13.0); NEUTROPHILS % (AUTO) 74.8 % (40.0-77.0); PLATELET COUNT (AUTO) 479 K/uL (130-400); RED BLOOD CELL COUNT(AUTO) 2.98 MIL/uL (4.50-6.20); RED CELL DISTRIBUTION WIDTH 13.2 % (11.0-15.5); WHITE BLOOD COUNT (AUTO) 7.7 K/uL (4.8-10.8)
[2020-07-26 05:41] LABS: ALBUMIN 2.2 g/dL (3.5-5.0); BILIRUBIN,TOTAL 0.4 mg/dL (0.2-1.0); CREATININE 7.1 mg/dL (0.5-1.5); POTASSIUM 4.5 mmol/L (3.5-5.1); TOTAL PROTEIN, SERUM 7.2 g/dL (6.0-8.3)
[2020-07-26] MEDS: AMLODIPINE 5 MG TAB PO SCH (09:28)
[2020-07-26] MEDS: ASPIRIN 81MG CHEW TAB PO SCH (09:29)
[2020-07-26] MEDS: IRON SUCROSE COMPLEX 100 MG in 0.9% NACL 50ML 50 ML IV SCH (09:29)
[2020-07-26] MEDS: ATORVASTATIN 20 MG TABLET PO SCH (20:48)
[2020-07-26] MEDS: INSULIN GLARGINE 100 UNITS/ML 10 ML VIAL SQ SCH (20:49)
[2020-07-27 04:00] VITALS: BP 140/83
[2020-07-27 04:07] LABS: BASOPHILS % (AUTO) 0.5 % (0.0-5.0); EOSINOPHILS % (AUTO) 0.9 % (0.0-8.0); HEMATOCRIT 26.4 % (42-54); LYMPHOCYTES % (AUTO) 13.1 % (21.0-51.0); MEAN CORPUSCULAR HEMOGLOBIN 27.6 pg (27.0-33.0); MEAN CORPUSCULAR HGB CONC 31.1 g/dL (32.0-36.0); MEAN CORPUSCULAR VOLUME 88.9 fL (79-99); MONOCYTES % (AUTO) 8.7 % (3.0-13.0); NEUTROPHILS % (AUTO) 76.4 % (40.0-77.0); PLATELET COUNT (AUTO) 505 K/uL (130-400); RED BLOOD CELL COUNT(AUTO) 2.97 MIL/uL (4.50-6.20); RED CELL DISTRIBUTION WIDTH 13.2 % (11.0-15.5); WHITE BLOOD COUNT (AUTO) 9.2 K/uL (4.8-10.8)
[2020-07-27 04:29] LABS: ALBUMIN 2.5 g/dL (3.5-5.0); BILIRUBIN,TOTAL 0.4 mg/dL (0.2-1.0); CREATININE 6.9 mg/dL (0.5-1.5); POTASSIUM 4.5 mmol/L (3.5-5.1); TOTAL PROTEIN, SERUM 7.8 g/dL (6.0-8.3)
[2020-07-27] MEDS: APAP-CODEINE 300/30MG TAB PO PRN ×2 (05:59→23:05)
[2020-07-27 08:16] VITALS: BP 126/64
[2020-07-27] MEDS: ASPIRIN 81MG CHEW TAB PO SCH (10:31)
[2020-07-27] MEDS: IRON SUCROSE COMPLEX 100 MG in 0.9% NACL 50ML 50 ML IV SCH (10:31)
[2020-07-27] MEDS: AMLODIPINE 5 MG TAB PO SCH (10:32)
[2020-07-27 11:49] VITALS: BP 134/71
[2020-07-27 17:12] VITALS: BP 132/69
[2020-07-27 20:00] VITALS: BP 139/70
[2020-07-27] MEDS: ATORVASTATIN 20 MG TABLET PO SCH (22:52)
[2020-07-27] MEDS: INSULIN GLARGINE 100 UNITS/ML 10 ML VIAL SQ SCH (23:02)
[2020-07-28] VITALS (7 sets, daily range): BP systolic 121–156; BP diastolic 65–78
[2020-07-28] MEDS: APAP-CODEINE 300/30MG TAB PO PRN (04:03)
[2020-07-28 04:26] LABS: BASOPHILS % (AUTO) 0.7 % (0.0-5.0); EOSINOPHILS % (AUTO) 1.4 % (0.0-8.0); HEMATOCRIT 27.7 % (42-54); LYMPHOCYTES % (AUTO) 13.3 % (21.0-51.0); MEAN CORPUSCULAR HEMOGLOBIN 27.1 pg (27.0-33.0); MEAN CORPUSCULAR HGB CONC 30.7 g/dL (32.0-36.0); MEAN CORPUSCULAR VOLUME 88.2 fL (79-99); NEUTROPHILS % (AUTO) 75.1 % (40.0-77.0); PLATELET COUNT (AUTO) 547 K/uL (130-400); RED BLOOD CELL COUNT(AUTO) 3.14 MIL/uL (4.50-6.20); RED CELL DISTRIBUTION WIDTH 13.5 % (11.0-15.5); WHITE BLOOD COUNT (AUTO) 8.8 K/uL (4.8-10.8)
[2020-07-28 04:44] LABS: ALBUMIN 2.6 g/dL (3.5-5.0); BILIRUBIN,TOTAL 0.4 mg/dL (0.2-1.0); CREATININE 6.9 mg/dL (0.5-1.5); POTASSIUM 4.3 mmol/L (3.5-5.1); TOTAL PROTEIN, SERUM 7.9 g/dL (6.0-8.3)
[2020-07-28] MEDS: ASPIRIN 81MG CHEW TAB PO SCH (09:45)
[2020-07-28] MEDS: IRON SUCROSE COMPLEX 100 MG in 0.9% NACL 50ML 50 ML IV SCH (09:45)
[2020-07-28] MEDS: AMLODIPINE 5 MG TAB PO SCH (09:45)
[2020-07-28] MEDS: ATORVASTATIN 20 MG TABLET PO SCH (20:45)
[2020-07-28] MEDS: GABAPENTIN 300 MG CAPSULE PO SCH (20:46)
[2020-07-28] MEDS: INSULIN GLARGINE 100 UNITS/ML 10 ML VIAL SQ SCH (20:53)
[2020-07-29 04:00] VITALS: BP 122/63
[2020-07-29 06:02] LABS: CREATININE 6.6 mg/dL (0.5-1.5); POTASSIUM 4.5 mmol/L (3.5-5.1)
[2020-07-29 06:05] LABS: HEMATOCRIT 27.8 % (42-54); MEAN CORPUSCULAR HEMOGLOBIN 27.5 pg (27.0-33.0); MEAN CORPUSCULAR HGB CONC 31.7 g/dL (32.0-36.0); MEAN CORPUSCULAR VOLUME 86.9 fL (79-99); PLATELET COUNT (AUTO) 504 K/uL (130-400); RED CELL DISTRIBUTION WIDTH 13.6 % (11.0-15.5); WHITE BLOOD COUNT (AUTO) 8.1 K/uL (4.8-10.8)
[2020-07-29 08:00] VITALS: BP 143/73
[2020-07-29 08:44] LABS: EOSINOPHILS % (MANUAL) 3 % (1-6); LYMPHOCYTES % (MANUAL) 14 % (22-44); MONOCYTES % (MANUAL) 12 % (2-9); PLATELET MORPHOLOGY COMMENT INCREASED; SEGMENTED NEUTROPHILS % 71 % (40-70)
[2020-07-29] MEDS: AMLODIPINE 5 MG TAB PO SCH (10:08)
[2020-07-29] MEDS: IRON SUCROSE COMPLEX 100 MG in 0.9% NACL 50ML 50 ML IV SCH (10:08)
[2020-07-29] MEDS: GABAPENTIN 300 MG CAPSULE PO SCH ×3 (10:09→20:38)
[2020-07-29] MEDS: ASPIRIN 81MG CHEW TAB PO SCH (10:09)
[2020-07-29 12:00] VITALS: BP 139/71
[2020-07-29] MEDS: DOCUSATE SODIUM 100 MG CAP PO SCH ×2 (13:39→20:38)
[2020-07-29] MEDS: POLYETHYLENE GLYCOL 3350 17 GM POWD.PACK PO SCH (13:39)
[2020-07-29 16:00] VITALS: BP 141/72
[2020-07-29 19:42] VITALS: BP 157/85
[2020-07-29] MEDS: APAP-CODEINE 300/30MG TAB PO PRN (20:38)
[2020-07-29] MEDS: ATORVASTATIN 20 MG TABLET PO SCH (20:38)
[2020-07-29] MEDS: METOPROLOL TARTRATE 25 MG TAB PO SCH (20:38)
[2020-07-29] MEDS: INSULIN GLARGINE 100 UNITS/ML 10 ML VIAL SQ SCH (20:45)
[2020-07-30 00:10] VITALS: BP 114/59
[2020-07-30] MEDS: APAP-CODEINE 300/30MG TAB PO PRN ×2 (01:55→20:23)
[2020-07-30 04:17] VITALS: BP 139/67
[2020-07-30 06:34] LABS: BASOPHILS % (AUTO) 0.6 % (0.0-5.0); EOSINOPHILS % (AUTO) 1.5 % (0.0-8.0); HEMATOCRIT 26.5 % (42-54); LYMPHOCYTES % (AUTO) 12.6 % (21.0-51.0); MEAN CORPUSCULAR HEMOGLOBIN 28.1 pg (27.0-33.0); MEAN CORPUSCULAR HGB CONC 31.7 g/dL (32.0-36.0); MEAN CORPUSCULAR VOLUME 88.6 fL (79-99); MONOCYTES % (AUTO) 8.7 % (3.0-13.0); NEUTROPHILS % (AUTO) 76.1 % (40.0-77.0); PLATELET COUNT (AUTO) 425 K/uL (130-400); RED BLOOD CELL COUNT(AUTO) 2.99 MIL/uL (4.50-6.20); RED CELL DISTRIBUTION WIDTH 13.9 % (11.0-15.5); WHITE BLOOD COUNT (AUTO) 9.8 K/uL (4.8-10.8)
[2020-07-30 06:41] LABS: CREATININE 6.5 mg/dL (0.5-1.5); POTASSIUM 5.2 mmol/L (3.5-5.1)
[2020-07-30 07:00] VITALS: BP 140/79
[2020-07-30] MEDS: DOCUSATE SODIUM 100 MG CAP PO SCH ×2 (09:54→20:22)
[2020-07-30] MEDS: GABAPENTIN 300 MG CAPSULE PO SCH ×3 (09:54→20:22)
[2020-07-30] MEDS: METOPROLOL TARTRATE 25 MG TAB PO SCH ×2 (09:54→20:22)
[2020-07-30] MEDS: AMLODIPINE 5 MG TAB PO SCH (09:55)
[2020-07-30] MEDS: POLYETHYLENE GLYCOL 3350 17 GM POWD.PACK PO SCH (09:55)
[2020-07-30] MEDS: ASPIRIN 81MG CHEW TAB PO SCH (09:55)
[2020-07-30] MEDS: IRON SUCROSE COMPLEX 100 MG in 0.9% NACL 50ML 50 ML IV SCH (10:05)
[2020-07-30 11:00] VITALS: BP 136/65
[2020-07-30] MEDS ORDERED: KAYEXALATE 15GM/60ML PO SCH (15:45)
[2020-07-30 16:00] VITALS: BP 120/65
[2020-07-30 19:51] VITALS: BP 128/57
[2020-07-30] MEDS: ATORVASTATIN 20 MG TABLET PO SCH (20:22)
[2020-07-30] MEDS: INSULIN GLARGINE 100 UNITS/ML 10 ML VIAL SQ SCH (20:26)
[2020-07-31] VITALS: BP 105/52
[2020-07-31 04:00] VITALS: BP 137/65
[2020-07-31 05:10] LABS: HEMATOCRIT 25.9 % (42-54); MEAN CORPUSCULAR HEMOGLOBIN 27.4 pg (27.0-33.0); MEAN CORPUSCULAR HGB CONC 31.3 g/dL (32.0-36.0); MEAN CORPUSCULAR VOLUME 87.5 fL (79-99); RED BLOOD CELL COUNT(AUTO) 2.96 MIL/uL (4.50-6.20); RED CELL DISTRIBUTION WIDTH 13.8 % (11.0-15.5); WHITE BLOOD COUNT (AUTO) 11.1 K/uL (4.8-10.8)
[2020-07-31 05:24] LABS: CREATININE 6.4 mg/dL (0.5-1.5); MAGNESIUM 2.1 mg/dL (1.80-2.40); PHOSPHORUS 6.3 mg/dL (2.5-4.9); POTASSIUM 4.6 mmol/L (3.5-5.1)
[2020-07-31 07:55] VITALS: BP 138/74
[2020-07-31] MEDS: DOCUSATE SODIUM 100 MG CAP PO SCH ×2 (08:30→19:36)
[2020-07-31] MEDS: ASPIRIN 81MG CHEW TAB PO SCH (08:30)
[2020-07-31] MEDS: METOPROLOL TARTRATE 25 MG TAB PO SCH ×2 (08:30→19:37)
[2020-07-31] MEDS: GABAPENTIN 300 MG CAPSULE PO SCH (08:31)
[2020-07-31] MEDS: AMLODIPINE 5 MG TAB PO SCH (08:31)
[2020-07-31] MEDS: POLYETHYLENE GLYCOL 3350 17 GM POWD.PACK PO SCH (08:31)
[2020-07-31 11:16] VITALS: BP 137/62
[2020-07-31 16:00] VITALS: BP 117/64
[2020-07-31] MEDS: CALCIUM AC 667MG CAP PO SCH (16:59)
[2020-07-31] MEDS: APAP-CODEINE 300/30MG TAB PO PRN (19:36)
[2020-07-31] MEDS: ATORVASTATIN 20 MG TABLET PO SCH (19:36)
[2020-07-31 19:37] VITALS: BP 130/68
[2020-07-31] MEDS: INSULIN GLARGINE 100 UNITS/ML 10 ML VIAL SQ SCH (21:06)
[2020-08-01] VITALS (7 sets, daily range): BP systolic 112–136; BP diastolic 52–68
[2020-08-01 04:57] LABS: HEMATOCRIT 27.5 % (42-54); MEAN CORPUSCULAR HEMOGLOBIN 27.8 pg (27.0-33.0); MEAN CORPUSCULAR HGB CONC 30.9 g/dL (32.0-36.0); MEAN CORPUSCULAR VOLUME 89.9 fL (79-99); RED BLOOD CELL COUNT(AUTO) 3.06 MIL/uL (4.50-6.20); RED CELL DISTRIBUTION WIDTH 13.9 % (11.0-15.5); WHITE BLOOD COUNT (AUTO) 14.9 K/uL (4.8-10.8)
[2020-08-01 05:14] LABS: CREATININE 6.6 mg/dL (0.5-1.5); PHOSPHORUS 6.5 mg/dL (2.5-4.9); POTASSIUM 4.4 mmol/L (3.5-5.1)
[2020-08-01] MEDS: CALCIUM AC 667MG CAP PO SCH ×3 (09:13→17:18)
[2020-08-01] MEDS: ASPIRIN 81MG CHEW TAB PO SCH (09:14)
[2020-08-01] MEDS: POLYETHYLENE GLYCOL 3350 17 GM POWD.PACK PO SCH (09:14)
[2020-08-01] MEDS: METOPROLOL TARTRATE 25 MG TAB PO SCH ×2 (09:14→20:37)
[2020-08-01] MEDS: DOCUSATE SODIUM 100 MG CAP PO SCH ×2 (09:14→20:37)
[2020-08-01] MEDS: AMLODIPINE 5 MG TAB PO SCH (09:14)
[2020-08-01 16:27] LABS: APPEARANCE,URINE Clear (CLEAR); BILIRUBIN,URINE Negative (NEGATIVE); COLOR,URINE Yellow (YELLOW); GLUCOSE, URINE (UA) Negative (NEGATIVE); KETONES,URINE Negative (NEGATIVE); LEUKOCYTE ESTERASE ,URINE Negative (NEGATIVE); NITRATE,URINE Negative (NEGATIVE); OCCULT BLOOD,URINE Small (NEGATIVE); PH,URINE 6.5 (5.0-8.0); PROTEIN,URINE POS 1+ mg/dL (NEGATIVE); UROBILINOGEN,URINE 0.2 mg/dL (0.2-1.0)
[2020-08-01 16:48] LABS: BACTERIA,URINE Few /HPF (None Seen); MUCUS,URINE Few LPF (None Seen); SQUAMOUS EPITHELIAL CELL,UR 0-2 /HPF (0-2)
[2020-08-01] MEDS: APAP-CODEINE 300/30MG TAB PO PRN (18:10)
[2020-08-01] MEDS ORDERED: PROPOFOL 10 MG/ML 20ML VIAL IV ONE (20:18)
[2020-08-01] MEDS ORDERED: LIDOCAINE HCL MPF 1% 5ML VIAL ONE (20:18)
[2020-08-01] MEDS ORDERED: ONDANSETRON 4MG INJ ONE (20:20)
[2020-08-01] MEDS ORDERED: MIDAZOLAM HCL 1 MG/ML 2ML VIAL ONE (20:20)
[2020-08-01] MEDS: ATORVASTATIN 20 MG TABLET PO SCH (20:37)
[2020-08-01] MEDS: INSULIN GLARGINE 100 UNITS/ML 10 ML VIAL SQ SCH (20:41)
[2020-08-01] MEDS ORDERED: FENTANYL CITRATE PF 50 MCG/1 ML 2ML VIAL ONE (20:50)
[2020-08-02 04:30] VITALS: BP 122/68
[2020-08-02 04:43] LABS: HEMATOCRIT 25.1 % (42-54); MEAN CORPUSCULAR HEMOGLOBIN 26.7 pg (27.0-33.0); MEAN CORPUSCULAR HGB CONC 30.7 g/dL (32.0-36.0); MEAN CORPUSCULAR VOLUME 87.2 fL (79-99); RED BLOOD CELL COUNT(AUTO) 2.88 MIL/uL (4.50-6.20); RED CELL DISTRIBUTION WIDTH 13.7 % (11.0-15.5); WHITE BLOOD COUNT (AUTO) 10.7 K/uL (4.8-10.8)
[2020-08-02 04:56] LABS: CREATININE 6.8 mg/dL (0.5-1.5)
[2020-08-02 08:00] VITALS: BP 125/64
[2020-08-02] MEDS: POLYETHYLENE GLYCOL 3350 17 GM POWD.PACK PO SCH (08:50)
[2020-08-02] MEDS: AMLODIPINE 5 MG TAB PO SCH (08:50)
[2020-08-02] MEDS: METOPROLOL TARTRATE 25 MG TAB PO SCH ×2 (08:50→19:51)
[2020-08-02] MEDS: CALCIUM AC 667MG CAP PO SCH ×3 (08:50→16:42)
[2020-08-02] MEDS: ASPIRIN 81MG CHEW TAB PO SCH (08:50)
[2020-08-02] MEDS: DOCUSATE SODIUM 100 MG CAP PO SCH ×2 (08:51→19:51)
[2020-08-02 11:38] VITALS: BP 126/66
[2020-08-02] MEDS ORDERED: PHARMACY COMMUNICATION MISC SCH (14:00)
[2020-08-02 16:33] VITALS: BP 132/67
[2020-08-02] MEDS: ATORVASTATIN 20 MG TABLET PO SCH (19:51)
[2020-08-02] MEDS: APAP-CODEINE 300/30MG TAB PO PRN (19:52)
[2020-08-02] MEDS: INSULIN GLARGINE 100 UNITS/ML 10 ML VIAL SQ SCH (19:56)
[2020-08-02 19:59] VITALS: BP 117/59
[2020-08-03 00:12] VITALS: BP 124/62
[2020-08-03 04:30] VITALS: BP 97/50
[2020-08-03 05:04] LABS: HEMATOCRIT 24.2 % (42-54); MEAN CORPUSCULAR HEMOGLOBIN 27.1 pg (27.0-33.0); MEAN CORPUSCULAR HGB CONC 31.4 g/dL (32.0-36.0); MEAN CORPUSCULAR VOLUME 86.4 fL (79-99); PLATELET COUNT (AUTO) 472 K/uL (130-400); RED CELL DISTRIBUTION WIDTH 13.6 % (11.0-15.5); WHITE BLOOD COUNT (AUTO) 8.9 K/uL (4.8-10.8)
[2020-08-03 05:17] LABS: ALBUMIN 2.3 g/dL (3.5-5.0); BILIRUBIN,TOTAL 0.3 mg/dL (0.2-1.0); CREATININE 5.9 mg/dL (0.5-1.5); PHOSPHORUS 5.6 mg/dL (2.5-4.9); POTASSIUM 3.8 mmol/L (3.5-5.1); TOTAL PROTEIN, SERUM 7.1 g/dL (6.0-8.3)
[2020-08-03 05:20] LABS: % IRON SATURATION 21.1 % (30-44)
[2020-08-03 05:33] LABS: BASOPHILS % (MANUAL) 3 % (0-2); EOSINOPHILS % (MANUAL) 3 % (1-6); LYMPHOCYTES % (MANUAL) 11 % (22-44); MONOCYTES % (MANUAL) 5 % (2-9); SEGMENTED NEUTROPHILS % 78 % (40-70)
[2020-08-03 05:34] LABS: MAN.DIFF COMMENT-IMPRESSION MANUAL DIFFERENTIAL; PLATELET MORPHOLOGY COMMENT LARGE PLTS PRESENT
[2020-08-03] MEDS: APAP-CODEINE 300/30MG TAB PO PRN (07:12)
[2020-08-03 08:00] VITALS: BP 129/66
[2020-08-03] MEDS: METOPROLOL TARTRATE 25 MG TAB PO SCH ×2 (08:30→19:41)
[2020-08-03] MEDS: DOCUSATE SODIUM 100 MG CAP PO SCH ×2 (08:30→19:41)
[2020-08-03] MEDS: AMLODIPINE 5 MG TAB PO SCH (08:30)
[2020-08-03] MEDS: POLYETHYLENE GLYCOL 3350 17 GM POWD.PACK PO SCH (08:30)
[2020-08-03] MEDS: ASPIRIN 81MG CHEW TAB PO SCH (08:30)
[2020-08-03] MEDS: CALCIUM AC 667MG CAP PO SCH ×3 (08:30→16:37)
[2020-08-03 12:00] VITALS: BP 114/57
[2020-08-03 16:00] VITALS: BP 116/58
[2020-08-03] MEDS: ATORVASTATIN 20 MG TABLET PO SCH (19:41)
[2020-08-03 20:12] VITALS: BP 125/59
[2020-08-03] MEDS: INSULIN GLARGINE 100 UNITS/ML 10 ML VIAL SQ SCH (20:48)
[2020-08-03] MEDS ORDERED: EPOETIN ALFA-EPBX (ESRD) 10,000 UNIT/ML VIAL SQ NR (21:00)
[2020-08-04 00:12] VITALS: BP 115/55
[2020-08-04 04:12] VITALS: BP 131/60
[2020-08-04 05:58] LABS: EOSINOPHILS % (AUTO) 1.8 % (0.0-8.0); HEMATOCRIT 25.6 % (42-54); LYMPHOCYTES % (AUTO) 12.2 % (21.0-51.0); MEAN CORPUSCULAR HEMOGLOBIN 27.9 pg (27.0-33.0); MEAN CORPUSCULAR HGB CONC 31.6 g/dL (32.0-36.0); MEAN CORPUSCULAR VOLUME 88.3 fL (79-99); MONOCYTES % (AUTO) 7.2 % (3.0-13.0); NEUTROPHILS % (AUTO) 77.3 % (40.0-77.0); PLATELET COUNT (AUTO) 495 K/uL (130-400); RED CELL DISTRIBUTION WIDTH 13.7 % (11.0-15.5); WHITE BLOOD COUNT (AUTO) 8.8 K/uL (4.8-10.8)
[2020-08-04 06:07] LABS: CREATININE 5.6 mg/dL (0.5-1.5); POTASSIUM 4.3 mmol/L (3.5-5.1)
[2020-08-04 08:08] VITALS: BP 135/55
[2020-08-04] MEDS: DOCUSATE SODIUM 100 MG CAP PO SCH ×2 (08:28→19:19)
[2020-08-04] MEDS: POLYETHYLENE GLYCOL 3350 17 GM POWD.PACK PO SCH (08:28)
[2020-08-04] MEDS: AMLODIPINE 5 MG TAB PO SCH (08:30)
[2020-08-04] MEDS: METOPROLOL TARTRATE 25 MG TAB PO SCH ×2 (08:30→19:19)
[2020-08-04] MEDS: CALCIUM AC 667MG CAP PO SCH ×3 (08:30→17:30)
[2020-08-04] MEDS: ASPIRIN 81MG CHEW TAB PO SCH (08:30)
[2020-08-04 12:00] VITALS: BP 132/65
[2020-08-04 16:25] VITALS: BP 122/67
[2020-08-04] MEDS: ATORVASTATIN 20 MG TABLET PO SCH (19:19)
[2020-08-04] MEDS: APAP-CODEINE 300/30MG TAB PO PRN ×2 (19:49→23:58)
[2020-08-04 20:16] VITALS: BP 143/68
[2020-08-04] MEDS: HEPARIN 5,000 UNIT VIAL SQ SCH (20:32)
[2020-08-04] MEDS: INSULIN GLARGINE 100 UNITS/ML 10 ML VIAL SQ SCH (20:33)
[2020-08-04] MEDS ORDERED: HYDROMORPHONE 0.5 MG SYG (0.5MG/0.5ML) IVP ONE (23:45)
[2020-08-05 00:16] VITALS: BP 115/58
[2020-08-05 04:16] VITALS: BP 116/60
[2020-08-05 06:02] LABS: HEMATOCRIT 26.8 % (42-54); MEAN CORPUSCULAR HEMOGLOBIN 27.2 pg (27.0-33.0); MEAN CORPUSCULAR HGB CONC 31.7 g/dL (32.0-36.0); MEAN CORPUSCULAR VOLUME 85.6 fL (79-99); PLATELET COUNT (AUTO) 495 K/uL (130-400); RED BLOOD CELL COUNT(AUTO) 3.13 MIL/uL (4.50-6.20); RED CELL DISTRIBUTION WIDTH 13.7 % (11.0-15.5); WHITE BLOOD COUNT (AUTO) 7.9 K/uL (4.8-10.8)
[2020-08-05 06:15] LABS: BASOPHILS % (MANUAL) 1 % (0-2); EOSINOPHILS % (MANUAL) 2 % (1-6); LYMPHOCYTES % (MANUAL) 16 % (22-44); MAN.DIFF COMMENT-IMPRESSION MANUAL DIFFERENTIAL; MONOCYTES % (MANUAL) 8 % (2-9); SEGMENTED NEUTROPHILS % 73 % (40-70)
[2020-08-05 06:16] LABS: PLATELET MORPHOLOGY COMMENT SLIGHT INCREASED
[2020-08-05 06:20] LABS: CREATININE 4.9 mg/dL (0.5-1.5); POTASSIUM 3.8 mmol/L (3.5-5.1)
[2020-08-05 08:00] VITALS: BP 149/53
[2020-08-05] MEDS ORDERED: HEPARIN 5,000 UNIT VIAL ONE (08:09)
[2020-08-05] MEDS: DOCUSATE SODIUM 100 MG CAP PO SCH ×2 (08:10→20:21)
[2020-08-05] MEDS: CALCIUM AC 667MG CAP PO SCH ×3 (08:11→17:43)
[2020-08-05] MEDS: AMLODIPINE 5 MG TAB PO SCH (08:11)
[2020-08-05] MEDS: METOPROLOL TARTRATE 25 MG TAB PO SCH ×2 (08:11→20:15)
[2020-08-05] MEDS: ASPIRIN 81MG CHEW TAB PO SCH (08:11)
[2020-08-05] MEDS: POLYETHYLENE GLYCOL 3350 17 GM POWD.PACK PO SCH (08:11)
[2020-08-05] MEDS: HEPARIN 5,000 UNIT VIAL SQ SCH ×2 (08:13→21:54)
[2020-08-05 12:00] VITALS: BP 128/65
[2020-08-05 16:00] VITALS: BP 132/65
[2020-08-05] MEDS: APAP-CODEINE 300/30MG TAB PO PRN ×2 (17:47→20:29)
[2020-08-05 20:12] VITALS: BP 129/59
[2020-08-05] MEDS: ATORVASTATIN 20 MG TABLET PO SCH (20:15)
[2020-08-05] MEDS: INSULIN GLARGINE 100 UNITS/ML 10 ML VIAL SQ SCH (21:55)
[2020-08-06 00:12] VITALS: BP 138/68
[2020-08-06 04:12] VITALS: BP 152/72
[2020-08-06] MEDS: APAP-CODEINE 300/30MG TAB PO PRN (05:32)
[2020-08-06 05:59] LABS: CREATININE 4.3 mg/dL (0.5-1.5); POTASSIUM 3.9 mmol/L (3.5-5.1)
[2020-08-06 07:30] VITALS: BP 127/64
[2020-08-06] MEDS ORDERED: GABAPENTIN 100 MG CAPSULE PO SCH (07:43)
[2020-08-06] MEDS ORDERED: GABAPENTIN 100 MG CAPSULE ONE (07:44)
[2020-08-06] MEDS: CALCIUM AC 667MG CAP PO SCH (08:35)
[2020-08-06] MEDS: DOCUSATE SODIUM 100 MG CAP PO SCH (08:35)
[2020-08-06] MEDS: ASPIRIN 81MG CHEW TAB PO SCH (08:35)
[2020-08-06] MEDS: METOPROLOL TARTRATE 25 MG TAB PO SCH (08:35)
[2020-08-06] MEDS: AMLODIPINE 5 MG TAB PO SCH (08:35)
[2020-08-06] MEDS: HEPARIN 5,000 UNIT VIAL SQ SCH (08:38)
[2020-08-06] MEDS: POLYETHYLENE GLYCOL 3350 17 GM POWD.PACK PO SCH (08:39)
[2020-08-06 11:00] VITALS: BP 121/52
[2020-08-06 16:09] VITALS: BP 123/63
[2020-08-06] MEDS ORDERED: Calcium Acetate PO (16:57)
[2020-08-06] MEDS ORDERED: ATOR20TA65 PO (16:57)
[2020-08-06] MEDS ORDERED: METO25 PO (16:57)
[2020-08-06] MEDS ORDERED: LINA5TAB PO (16:57)
[2020-08-06] MEDS ORDERED: AMLO5TAB4 PO (16:57)
== END 2020-08-06 17:40 | disposition home or self-care (01) | DRG 854 ==
LOC: EDH 15:11 → EEVIPCON 15:11 → EDHIP 15:12 → 4CH 07-17 10:08 → 3DH 07-19 20:28
PROVIDERS: ADMIT Internal Medicine; ATTEND Internal Medicine
PROC: 0Y6H0Z1 Detachment at Right Lower Leg, High, Open Approach (ICD-10-PCS; principal; 2020-07-19 17:56)
PROC: 30233N1 Transfusion of Nonautologous Red Blood Cells into Peripheral Vein, Percutaneous Approach (ICD-10-PCS; 2020-07-24)
DX: A41.9 Sepsis, unspecified organism (principal); E11.52 Type 2 diabetes mellitus with diabetic peripheral angiopathy with gangrene; E87.1 Hypo-osmolality and hyponatremia; N17.9 Acute kidney failure, unspecified; M86.8X7 Other osteomyelitis, ankle and foot; E44.0 Moderate protein-calorie malnutrition; Z68.1 Body mass index [BMI] 19.9 or less, adult; N10 Acute pyelonephritis; E11.621 Type 2 diabetes mellitus with foot ulcer; E11.65 Type 2 diabetes mellitus with hyperglycemia; I10 Essential (primary) hypertension; T36.8X5A Adverse effect of other systemic antibiotics, initial encounter; D64.9 Anemia, unspecified; E11.21 Type 2 diabetes mellitus with diabetic nephropathy; E11.69 Type 2 diabetes mellitus with other specified complication; E78.00 Pure hypercholesterolemia, unspecified; E78.5 Hyperlipidemia, unspecified; E87.5 Hyperkalemia; H54.3 Unqualified visual loss, both eyes; Y92.239 Unspecified place in hospital as the place of occurrence of the external cause; L03.031 Cellulitis of right toe; L97.519 Non-pressure chronic ulcer of other part of right foot with unspecified severity; Z82.49 Family history of ischemic heart disease and other diseases of the circulatory system; Z83.3 Family history of diabetes mellitus; Z87.891 Personal history of nicotine dependence; Z90.49 Acquired absence of other specified parts of digestive tract; Z91.19 Patient's noncompliance with other medical treatment and regimen
CPT/HCPCS: 36415; 36430; 71045; 73718; 74018; 80048; 80053; 80202; 81001; 82550; 82570; 82728; 82948; 83036; 83540; 83550; 83605; 83735; 84100; 84145; 84300; 84484; 85014; 85018; 85025; 85027; 86850; 86900; 86901; 86923; 87040; 87077; 87088; 87186; 87205; 93925; 97039; G0378; J1170; J1644; J1756; J2175; J2250; J2270; J2405; J2543; J2704; J3010; J3370; J3490; J7050; P9016

== ENCOUNTER 2020-08-12 14:11 | Inpatient (IN) | payer OTHER ==
[~2020-08-12] VITALS: Ht 167.6 cm; Wt 51.8 kg
[~2020-08-12 14:11] MED LIST changes: +AMLO5TAB4 PO; +ATOR20TA65 PO; -ATOR40TA69 PO; +Calcium Acetate PO; +LINA5TAB PO; -LISI-809 PO; -METF-446 PO; -METO-391 PO; +METO25 PO
[2020-08-12] MEDS: CEPHALEXIN 500 MG CAPSULE PO SCH (15:26)
[2020-08-12] MEDS ORDERED: 0.9%NACL 250ML IVPB SCH (16:00)
[2020-08-12] MEDS ORDERED: PIP/TAZ ZOSYN 3.375G 3.375 GM VIAL IVPB ONE (16:00)
[2020-08-12] MEDS ORDERED: 0.9% NACL 50ML 50 ML IV.SOLN. IV ONE (16:00)
[2020-08-12] MEDS ORDERED: VANCOMYCIN 1G VIAL IVPB SCH (16:00)
[2020-08-12 16:45] LABS: BASOPHILS % (AUTO) 0.5 % (0.0-5.0); HEMATOCRIT 28.2 % (42-54); LYMPHOCYTES % (AUTO) 7.9 % (21.0-51.0); MEAN CORPUSCULAR HEMOGLOBIN 26.9 pg (27.0-33.0); MEAN CORPUSCULAR HGB CONC 31.9 g/dL (32.0-36.0); MEAN CORPUSCULAR VOLUME 84.2 fL (79-99); MONOCYTES % (AUTO) 7.4 % (3.0-13.0); NEUTROPHILS % (AUTO) 82.9 % (40.0-77.0); PLATELET COUNT (AUTO) 325 K/uL (130-400); RED BLOOD CELL COUNT(AUTO) 3.35 MIL/uL (4.50-6.20); RED CELL DISTRIBUTION WIDTH 13.5 % (11.0-15.5); WHITE BLOOD COUNT (AUTO) 11.7 K/uL (4.8-10.8)
[2020-08-12 16:58] LABS: POTASSIUM 3.2 mmol/L (3.5-5.1)
[2020-08-12 17:02] LABS: ALBUMIN 3.4 g/dL (3.5-5.0); BILIRUBIN,TOTAL 0.4 mg/dL (0.2-1.0); CRP QUANTITATIVE 104.7 mg/L (0.00-9.0); TOTAL PROTEIN, SERUM 8.4 g/dL (6.0-8.3)
[2020-08-12] MEDS ORDERED: POTASSIUM CHLORIDE 10% ELIXIR 20 MEQ/15 ML UDCUP PO ONE (17:15)
[2020-08-12 17:43] LABS: INR 1.19 (0.85-1.15); PROTHROMBIN TIME 12.8 SEC (9.6-11.6)
[2020-08-12] MEDS ORDERED: MORPHINE 4 MG SYG IV ONE (17:45)
[2020-08-12] MEDS ORDERED: MORPHINE 4 MG SYG ONE (17:55)
[2020-08-12] MEDS ORDERED: ONDANSETRON 4MG INJ ONE (17:56)
[2020-08-12] MEDS: CEFEPIME HCL 1 GM VIAL IVP SCH (18:28)
[2020-08-12] MEDS: CLINDAMYCIN IVPB 600MG/50ML 50 ML IV SCH (18:30)
[2020-08-12] MEDS: NACL 0.9% 1000ML 1,000 ML IV SCH ×2 (19:08→20:05)
[2020-08-12 20:00] VITALS: BP 151/70
[2020-08-12] MEDS: TRAMADOL HCL 50 MG TABLET PO PRN ×2 (20:11→21:53)
[2020-08-13] VITALS (8 sets, daily range): BP systolic 123–146; BP diastolic 60–73
[2020-08-13] MEDS: CLINDAMYCIN IVPB 600MG/50ML 50 ML IV SCH ×4 (02:30→23:44)
[2020-08-13] MEDS ORDERED: 0.9% NACL 50ML 50 ML IV ONE (06:03)
[2020-08-13] MEDS: CEFEPIME HCL 1 GM VIAL IVP SCH ×2 (06:05→16:53)
[2020-08-13 06:08] LABS: BASOPHILS % (AUTO) 0.8 % (0.0-5.0); EOSINOPHILS % (AUTO) 2.3 % (0.0-8.0); HEMATOCRIT 28.4 % (42-54); LYMPHOCYTES % (AUTO) 10.4 % (21.0-51.0); MEAN CORPUSCULAR HEMOGLOBIN 26.5 pg (27.0-33.0); MEAN CORPUSCULAR VOLUME 85.5 fL (79-99); MONOCYTES % (AUTO) 9.2 % (3.0-13.0); NEUTROPHILS % (AUTO) 76.8 % (40.0-77.0); PLATELET COUNT (AUTO) 276 K/uL (130-400); RED BLOOD CELL COUNT(AUTO) 3.32 MIL/uL (4.50-6.20); RED CELL DISTRIBUTION WIDTH 13.4 % (11.0-15.5); WHITE BLOOD COUNT (AUTO) 10.6 K/uL (4.8-10.8)
[2020-08-13 06:16] LABS: POTASSIUM 3.5 mmol/L (3.5-5.1)
[2020-08-13 06:43] LABS: BILIRUBIN,URINE NEGATIVE (NEGATIVE); GLUCOSE, URINE (UA) 250 mg/dL (NEGATIVE); KETONES,URINE NEGATIVE (NEGATIVE); LEUKOCYTE ESTERASE ,URINE NEGATIVE (NEGATIVE); NITRATE,URINE NEGATIVE (NEGATIVE); OCCULT BLOOD,URINE TRACE-INTACT (NEGATIVE); PROTEIN,URINE NEGATIVE (NEGATIVE); UROBILINOGEN,URINE 0.2 mg/dL (0.2-1.0)
[2020-08-13 07:54] LABS: APPEARANCE,URINE CLEAR (CLEAR); COLOR,URINE YELLOW (YELLOW)
[2020-08-13] MEDS: INSULIN HUMULIN R 100 UNIT/ML 3ML SQ SCH ×4 (08:05→19:46)
[2020-08-13 08:22] LABS: RBC,URINE 0-1 /HPF (0-1); WBC,URINE 0-1 /HPF (0-1)
[2020-08-13 08:23] LABS: BACTERIA,URINE None Seen /HPF (None Seen)
[2020-08-13] MEDS: TRAMADOL HCL 50 MG TABLET PO PRN ×2 (12:08→19:48)
[2020-08-13] MEDS ORDERED: GLIP5TAB11 PO (14:39)
[2020-08-13] MEDS: METOPROLOL TARTRATE 25 MG TAB PO SCH (19:48)
[2020-08-13] MEDS ORDERED: ATORVASTATIN 20 MG TABLET PO SCH (21:00)
[2020-08-13] MEDS: NACL 0.9% 1000ML 1,000 ML IV SCH (23:45)
[2020-08-14] VITALS: BP 142/70
[2020-08-14] MEDS: CEFEPIME HCL 1 GM VIAL IVP SCH (05:15)
[2020-08-14 06:36] LABS: CREATININE 1.9 mg/dL (0.5-1.5); POTASSIUM 3.2 mmol/L (3.5-5.1)
[2020-08-14 06:44] LABS: BASOPHILS % (AUTO) 0.9 % (0.0-5.0); EOSINOPHILS % (AUTO) 2.3 % (0.0-8.0); HEMATOCRIT 25.9 % (42-54); LYMPHOCYTES % (AUTO) 8.1 % (21.0-51.0); MEAN CORPUSCULAR HEMOGLOBIN 27.2 pg (27.0-33.0); MEAN CORPUSCULAR HGB CONC 31.7 g/dL (32.0-36.0); MONOCYTES % (AUTO) 8.2 % (3.0-13.0); PLATELET COUNT (AUTO) 263 K/uL (130-400); RED BLOOD CELL COUNT(AUTO) 3.01 MIL/uL (4.50-6.20); RED CELL DISTRIBUTION WIDTH 13.3 % (11.0-15.5); WHITE BLOOD COUNT (AUTO) 10.1 K/uL (4.8-10.8)
[2020-08-14] MEDS: INSULIN HUMULIN R 100 UNIT/ML 3ML SQ SCH ×2 (07:30→11:28)
[2020-08-14 08:00] VITALS: BP 140/67
[2020-08-14] MEDS ORDERED: AMLODIPINE 5 MG TAB PO SCH (09:00)
[2020-08-14] MEDS: CLINDAMYCIN IVPB 600MG/50ML 50 ML IV SCH (09:12)
[2020-08-14] MEDS: CALCIUM AC 667MG CAP PO SCH ×2 (09:12→11:26)
[2020-08-14] MEDS: METOPROLOL TARTRATE 25 MG TAB PO SCH (09:12)
[2020-08-14] MEDS: TRAMADOL HCL 50 MG TABLET PO PRN (11:33)
[2020-08-14 12:00] VITALS: BP 140/70
[2020-08-14 16:00] VITALS: BP 136/94
== END 2020-08-14 17:30 | disposition home or self-care (01) | DRG 684 ==
LOC: EDH 14:11 → EDHIP 14:12 → OBSVTOIN 14:12 → 3BH 08-13 07:38
PROVIDERS: ADMIT Internal Medicine; ATTEND Internal Medicine
DX: N17.9 Acute kidney failure, unspecified (principal); R54 Age-related physical debility; I12.9 Hypertensive chronic kidney disease with stage 1 through stage 4 chronic kidney disease, or unspecified chronic kidney disease; N18.9 Chronic kidney disease, unspecified; E11.22 Type 2 diabetes mellitus with diabetic chronic kidney disease; E11.51 Type 2 diabetes mellitus with diabetic peripheral angiopathy without gangrene; D64.9 Anemia, unspecified; E63.9 Nutritional deficiency, unspecified; E78.5 Hyperlipidemia, unspecified; Z87.891 Personal history of nicotine dependence; Z90.49 Acquired absence of other specified parts of digestive tract; Z91.19 Patient's noncompliance with other medical treatment and regimen
CPT/HCPCS: 36415; 70450; 71045; 73560; 73700; 80048; 80053; 81001; 82948; 83036; 83605; 84145; 84443; 84484; 85025; 85610; 85651; 85730; 86140; 87040; 87070; 87076; 87077; 87186; 93005; G0378; J0692; J1815; J2270; J2405; J3490; J7030

== ENCOUNTER 2021-10-16 12:33 | Inpatient (IN) | payer MEDICAID, OTHER ==
[~2021-10-16] VITALS: Ht 160 cm; Wt 59.5 kg
[~2021-10-16 12:33] MED LIST changes: +GLIP5TAB11 PO
[2021-10-16 14:25] LABS: BASOPHILS % (AUTO) 0.4 % (0.0-5.0); EOSINOPHILS % (AUTO) 0.6 % (0.0-8.0); HEMATOCRIT 34.3 % (42-54); LYMPHOCYTES % (AUTO) 14.1 % (21.0-51.0); MEAN CORPUSCULAR HGB CONC 33.5 g/dL (32.0-36.0); MEAN CORPUSCULAR VOLUME 86.4 fL (79-99); MONOCYTES % (AUTO) 6.3 % (3.0-13.0); NEUTROPHILS % (AUTO) 78.2 % (40.0-77.0); PLATELET COUNT (AUTO) 284 K/uL (130-400); RED BLOOD CELL COUNT(AUTO) 3.97 MIL/uL (4.50-6.20); RED CELL DISTRIBUTION WIDTH 12.6 % (11.0-15.5); WHITE BLOOD COUNT (AUTO) 9.8 K/uL (4.8-10.8)
[2021-10-16 14:33] LABS: CREATININE 1.3 mg/dL (0.5-1.5); POTASSIUM 4.1 mmol/L (3.5-5.1)
[2021-10-16 14:37] LABS: ALBUMIN 4.1 g/dL (3.5-5.0); TOTAL PROTEIN, SERUM 8.4 g/dL (6.0-8.3)
[2021-10-16] MEDS ORDERED: ZOSYN 3.375GM +NS 50ML IV ONE (15:00)
[2021-10-16] MEDS: ZOSYN 3.375GM +NS 50ML IV SCH (17:00)
[2021-10-16] MEDS ORDERED: METOPROLOL TARTRATE 25 MG TAB PO ONE (17:30)
[2021-10-16] MEDS ORDERED: AMLODIPINE 5 MG TAB PO ONE (17:30)
[2021-10-16] MEDS: HEPARIN 5,000 UNIT VIAL SQ SCH (18:18)
[2021-10-16] MEDS: METOPROLOL TARTRATE 25 MG TAB PO SCH (20:57)
[2021-10-16] MEDS: GABAPENTIN 100 MG CAPSULE PO SCH (21:13)
[2021-10-16] MEDS: FAMOTIDINE 20MG TAB PO SCH (21:13)
[2021-10-16] MEDS: INSULIN HUMULIN R 100 UNIT/ML 3ML SQ SCH (21:13)
[2021-10-17] MEDS: ZOSYN 3.375GM +NS 50ML IV SCH ×3 (00:54→18:50)
[2021-10-17 04:16] VITALS: BP 124/72
[2021-10-17] MEDS: HEPARIN 5,000 UNIT VIAL SQ SCH ×2 (05:36→18:51)
[2021-10-17 06:33] LABS: BASOPHILS % (AUTO) 0.5 % (0.0-5.0); EOSINOPHILS % (AUTO) 0.6 % (0.0-8.0); HEMATOCRIT 33.5 % (42-54); LYMPHOCYTES % (AUTO) 21.6 % (21.0-51.0); MEAN CORPUSCULAR HEMOGLOBIN 28.9 pg (27.0-33.0); MEAN CORPUSCULAR HGB CONC 33.4 g/dL (32.0-36.0); MEAN CORPUSCULAR VOLUME 86.3 fL (79-99); MONOCYTES % (AUTO) 7.6 % (3.0-13.0); NEUTROPHILS % (AUTO) 69.5 % (40.0-77.0); PLATELET COUNT (AUTO) 262 K/uL (130-400); RED BLOOD CELL COUNT(AUTO) 3.88 MIL/uL (4.50-6.20); RED CELL DISTRIBUTION WIDTH 12.4 % (11.0-15.5); WHITE BLOOD COUNT (AUTO) 8.4 K/uL (4.8-10.8)
[2021-10-17 06:52] LABS: ALBUMIN 3.6 g/dL (3.5-5.0); CREATININE 1.3 mg/dL (0.5-1.5); CRP QUANTITATIVE 14.9 mg/L (0.00-9.0); MAGNESIUM 1.9 mg/dL (1.80-2.40); THYROID STIMULATING HORMONE 2.36 uIU/mL (0.36-3.74); TOTAL PROTEIN, SERUM 7.7 g/dL (6.0-8.3)
[2021-10-17] MEDS: INSULIN HUMULIN R 100 UNIT/ML 3ML SQ SCH ×4 (06:57→21:36)
[2021-10-17 07:58] VITALS: BP 128/74
[2021-10-17] MEDS: FAMOTIDINE 20MG TAB PO SCH ×2 (09:57→21:30)
[2021-10-17] MEDS: GABAPENTIN 100 MG CAPSULE PO SCH ×3 (09:57→21:30)
[2021-10-17] MEDS: METOPROLOL TARTRATE 25 MG TAB PO SCH ×2 (09:57→21:30)
[2021-10-17] MEDS: AMLODIPINE 5 MG TAB PO SCH (09:57)
[2021-10-17 11:41] VITALS: BP 133/69
[2021-10-17 16:00] VITALS: BP 127/67
[2021-10-17 20:28] VITALS: BP 114/64
[2021-10-18 00:49] VITALS: BP 112/43
[2021-10-18] MEDS: ZOSYN 3.375GM +NS 50ML IV SCH ×2 (02:45→09:44)
[2021-10-18 04:26] VITALS: BP 108/57
[2021-10-18] MEDS: HEPARIN 5,000 UNIT VIAL SQ SCH (06:39)
[2021-10-18] MEDS: INSULIN HUMULIN R 100 UNIT/ML 3ML SQ SCH (06:44)
[2021-10-18 08:00] VITALS: BP 105/63
[2021-10-18] MEDS: GABAPENTIN 100 MG CAPSULE PO SCH (09:44)
[2021-10-18] MEDS: FAMOTIDINE 20MG TAB PO SCH (09:44)
[2021-10-18] MEDS: METOPROLOL TARTRATE 25 MG TAB PO SCH (09:44)
[2021-10-18] MEDS: AMLODIPINE 5 MG TAB PO SCH (09:44)
[2021-10-18] MEDS ORDERED: ASPI-449 PO (09:56)
[2021-10-18] MEDS ORDERED: RIVA2.5T PO (09:56)
[2021-10-18] MEDS ORDERED: CLIN-141 PO (09:56)
[2021-10-18] MEDS ORDERED: ROSU20TA31 PO (09:56)
[2021-10-18 11:00] VITALS: BP 116/54
== END 2021-10-18 13:20 | disposition home or self-care (01) | DRG 300 ==
LOC: EDH 12:33 → EDHIP 12:34 → 3BH 10-17 00:33
PROVIDERS: ADMIT Hospitalist; ATTEND Hospitalist
DX: E11.52 Type 2 diabetes mellitus with diabetic peripheral angiopathy with gangrene (principal); L03.115 Cellulitis of right lower limb; L03.116 Cellulitis of left lower limb; E11.22 Type 2 diabetes mellitus with diabetic chronic kidney disease; E11.319 Type 2 diabetes mellitus with unspecified diabetic retinopathy without macular edema; E11.36 Type 2 diabetes mellitus with diabetic cataract; E11.40 Type 2 diabetes mellitus with diabetic neuropathy, unspecified; E78.5 Hyperlipidemia, unspecified; H54.8 Legal blindness, as defined in USA; I12.9 Hypertensive chronic kidney disease with stage 1 through stage 4 chronic kidney disease, or unspecified chronic kidney disease; N18.30 Chronic kidney disease, stage 3 unspecified; Z99.3 Dependence on wheelchair; Z89.511 Acquired absence of right leg below knee; Z87.891 Personal history of nicotine dependence; Z86.79 Personal history of other diseases of the circulatory system; Z86.39 Personal history of other endocrine, nutritional and metabolic disease; Z79.899 Other long term (current) drug therapy; Z79.84 Long term (current) use of oral hypoglycemic drugs; Z79.82 Long term (current) use of aspirin; Z79.01 Long term (current) use of anticoagulants; Z79.02 Long term (current) use of antithrombotics/antiplatelets
CPT/HCPCS: 36415; 73630; 80053; 80061; 82948; 83036; 83735; 84145; 84443; 85025; 86140; 93005; 93926; G0378; J1644; J1815; J2543

== ENCOUNTER 2021-11-24 11:28 | Inpatient (IN) | payer OTHER ==
[~2021-11-24] VITALS: Ht 167.6 cm; Wt 72.6 kg
[~2021-11-24 11:28] MED LIST changes: +ASPI-1005 PO; -ATOR20TA65 PO; +ATOR40TA69 PO; -METO25 PO; +METO25TA3 PO
[2021-11-24 11:54] LABS: BASOPHILS % (AUTO) 0.6 % (0.0-5.0); EOSINOPHILS % (AUTO) 0.8 % (0.0-8.0); HEMATOCRIT 25.9 % (42-54); LYMPHOCYTES % (AUTO) 15.4 % (21.0-51.0); MEAN CORPUSCULAR HEMOGLOBIN 28.2 pg (27.0-33.0); MEAN CORPUSCULAR HGB CONC 33.2 g/dL (32.0-36.0); MEAN CORPUSCULAR VOLUME 84.9 fL (79-99); MONOCYTES % (AUTO) 8.3 % (3.0-13.0); NEUTROPHILS % (AUTO) 74.4 % (40.0-77.0); PLATELET COUNT (AUTO) 295 K/uL (130-400); RED BLOOD CELL COUNT(AUTO) 3.05 MIL/uL (4.50-6.20); RED CELL DISTRIBUTION WIDTH 12.8 % (11.0-15.5)
[2021-11-24 13:10] LABS: CREATININE 1.5 mg/dL (0.5-1.5); POTASSIUM 3.6 mmol/L (3.5-5.1)
[2021-11-24 13:14] LABS: TOTAL PROTEIN, SERUM 7.7 g/dL (6.0-8.3)
[2021-11-24] MEDS ORDERED: ZOSYN 3.375GM+NS 50ML 50 ML ONE (13:57)
[2021-11-24] MEDS ORDERED: ONDANSETRON 4MG INJ ONE (13:57)
[2021-11-24] MEDS ORDERED: MORPHINE 4 MG SYG ONE (13:57)
[2021-11-24] MEDS ORDERED: 0.9%NACL 1000ML 1,000 ML IV ONE (14:00)
[2021-11-24] MEDS ORDERED: ZOSYN 3.375GM +NS 50ML IV ONE (14:00)
[2021-11-24] MEDS ORDERED: MORPHINE 4 MG SYG IVP ONE (14:00)
[2021-11-24] MEDS ORDERED: ONDANSETRON 4MG INJ IVP ONE (14:00)
[2021-11-24 14:31] LABS: APPEARANCE,URINE CLEAR (CLEAR); BILIRUBIN,URINE NEGATIVE (NEGATIVE); COLOR,URINE COLORLESS (YELLOW); GLUCOSE, URINE (UA) 500 mg/dL (NEGATIVE); KETONES,URINE NEGATIVE (NEGATIVE); LEUKOCYTE ESTERASE ,URINE NEGATIVE Leu/uL (NEGATIVE); NITRATE,URINE NEGATIVE (NEGATIVE); PROTEIN,URINE 20 mg/dL (NEGATIVE); UROBILINOGEN,URINE 0.2 mg/dL (0.2-1.0)
[2021-11-24 14:54] LABS: MUCUS,URINE RARE LPF (None Seen); RBC,URINE 0-1 /HPF (0-1); WBC,URINE 0-1 /HPF (0-1)
[2021-11-24] MEDS ORDERED: VANCOMYCIN PROTOCOL PER PHARMACY IV SCH (16:00)
[2021-11-24] MEDS ORDERED: CEFEPIME HCL 2 GM VIAL IVP SCH (16:00)
[2021-11-24] MEDS ORDERED: CLOPIDOGREL 75MG TAB PO ONE (16:00)
[2021-11-24] MEDS ORDERED: ASPIRIN 81MG CHEW TAB PO ONE (16:00)
[2021-11-24] MEDS: INSULIN HUMULIN R 100 UNIT/ML 3ML SQ SCH ×2 (16:26→20:38)
[2021-11-24] MEDS: 0.9%NACL 1000ML 1,000 ML IV SCH (16:26)
[2021-11-24] MEDS ORDERED: MORPHINE 2 MG SYG IVP PRN (16:30)
[2021-11-24] MEDS ORDERED: ONDANSETRON 4MG INJ IVP PRN (16:30)
[2021-11-24] MEDS ORDERED: ACETAMINOPHEN 500 MG TABLET PO PRN (16:30)
[2021-11-24] MEDS ORDERED: ACETAMINOPHEN WITH CODEINE 1 TAB TAB PO PRN (16:30)
[2021-11-24] MEDS ORDERED: VANCOMYCIN 1.5 GM/250 ML BAG 250 ML IV ONE (16:30)
[2021-11-24 16:36] LABS: HEMOGLOBIN A1C 7.2 % (4.0-6.0)
[2021-11-24 16:45] LABS: % IRON SATURATION 15.9 % (30-44)
[2021-11-24 20:00] VITALS: BP 119/64
[2021-11-24] MEDS: PANTOPRAZOLE 40 MG TAB DR PO SCH (20:49)
[2021-11-24] MEDS ORDERED: ATORVASTATIN 40 MG TABLET PO SCH (21:00)
[2021-11-25] VITALS: BP 131/71
[2021-11-25 04:00] VITALS: BP 109/61
[2021-11-25] MEDS: 0.9%NACL 1000ML 1,000 ML IV SCH (05:24)
[2021-11-25 06:28] LABS: BASOPHILS % (AUTO) 0.6 % (0.0-5.0); EOSINOPHILS % (AUTO) 0.9 % (0.0-8.0); HEMATOCRIT 27.7 % (42-54); LYMPHOCYTES % (AUTO) 12.2 % (21.0-51.0); MEAN CORPUSCULAR HEMOGLOBIN 28.2 pg (27.0-33.0); MEAN CORPUSCULAR HGB CONC 32.5 g/dL (32.0-36.0); MEAN CORPUSCULAR VOLUME 86.8 fL (79-99); MONOCYTES % (AUTO) 5.8 % (3.0-13.0); PLATELET COUNT (AUTO) 282 K/uL (130-400); RED BLOOD CELL COUNT(AUTO) 3.19 MIL/uL (4.50-6.20); RED CELL DISTRIBUTION WIDTH 12.5 % (11.0-15.5); WHITE BLOOD COUNT (AUTO) 9.4 K/uL (4.8-10.8)
[2021-11-25] MEDS: INSULIN HUMULIN R 100 UNIT/ML 3ML SQ SCH (06:34)
[2021-11-25 07:10] LABS: CREATININE 1.4 mg/dL (0.5-1.5); POTASSIUM 3.6 mmol/L (3.5-5.1)
[2021-11-25 07:56] VITALS: BP 134/25
[2021-11-25] MEDS ORDERED: 0.9% NACL 250ML 250 ML ONE (08:06)
[2021-11-25] MEDS ORDERED: METOPROLOL SUCCINATE 25 MG TAB.SR.24H PO SCH (09:00)
[2021-11-25] MEDS ORDERED: ASPIRIN 81 MG EC TAB PO SCH (09:00)
[2021-11-25] MEDS ORDERED: CLOPIDOGREL 75MG TAB PO SCH (09:00)
[2021-11-25] MEDS ORDERED: VANCOMYCIN 1G/250ML KIT 250 ML IV SCH (09:00)
[2021-11-25] MEDS: PANTOPRAZOLE 40 MG TAB DR PO SCH (09:47)
[2021-11-25 11:36] VITALS: BP 141/28
[2021-11-25] MEDS ORDERED: ATORVASTATIN 40 MG TABLET PO SCH (21:00)
== END 2021-11-25 15:02 | disposition left against medical advice (07) | DRG 863 ==
LOC: EDH 11:28 → EDHIP 11:29 → 3CH 18:03
PROVIDERS: ADMIT Internal Medicine; ATTEND Internal Medicine
DX: T81.41XA Infection following a procedure, superficial incisional surgical site, initial encounter (principal); L03.116 Cellulitis of left lower limb; Z20.822 Contact with and (suspected) exposure to COVID-19; E11.621 Type 2 diabetes mellitus with foot ulcer; E11.65 Type 2 diabetes mellitus with hyperglycemia; E78.00 Pure hypercholesterolemia, unspecified; E86.0 Dehydration; I10 Essential (primary) hypertension; Z53.29 Procedure and treatment not carried out because of patient's decision for other reasons; Y83.8 Other surgical procedures as the cause of abnormal reaction of the patient, or of later complication, without mention of misadventure at the time of the procedure; Z90.49 Acquired absence of other specified parts of digestive tract; Z89.511 Acquired absence of right leg below knee; Z89.412 Acquired absence of left great toe; Y92.89 Other specified places as the place of occurrence of the external cause
CPT/HCPCS: 36415; 73630; 73718; 80048; 80053; 81001; 82607; 82728; 82746; 82948; 83036; 83540; 83550; 83605; 84145; 85014; 85018; 85025; 85651; 86140; 87040; 87635; 87804; 93926; G0378; J0692; J2270; J2405; J2543; J3370; J7050

== ENCOUNTER 2021-12-06 20:57 | Inpatient (IN) | payer OTHER ==
[~2021-12-06] VITALS: Ht 167.6 cm; Wt 61.3 kg
[2021-12-06 21:37] LABS: BASOPHILS % (AUTO) 0.3 % (0.0-5.0); LYMPHOCYTES % (AUTO) 23.1 % (21.0-51.0); MEAN CORPUSCULAR HEMOGLOBIN 27.8 pg (27.0-33.0); MEAN CORPUSCULAR HGB CONC 32.1 g/dL (32.0-36.0); MEAN CORPUSCULAR VOLUME 86.4 fL (79-99); MONOCYTES % (AUTO) 9.2 % (3.0-13.0); NEUTROPHILS % (AUTO) 65.1 % (40.0-77.0); PLATELET COUNT (AUTO) 306 K/uL (130-400); RED BLOOD CELL COUNT(AUTO) 3.24 MIL/uL (4.50-6.20); RED CELL DISTRIBUTION WIDTH 13.2 % (11.0-15.5); WHITE BLOOD COUNT (AUTO) 6.5 K/uL (4.8-10.8)
[2021-12-06 21:46] LABS: CREATININE 1.2 mg/dL (0.5-1.5); POTASSIUM 3.8 mmol/L (3.5-5.1)
[2021-12-06 21:55] LABS: ALBUMIN 3.5 g/dL (3.5-5.0); TOTAL PROTEIN, SERUM 8.7 g/dL (6.0-8.3)
[2021-12-06] MEDS ORDERED: ZOSYN 3.375GM +NS 50ML IV ONE (22:30)
[2021-12-06] MEDS ORDERED: LACTATED RINGERS 1000ML 1,000 ML IV SCH (23:00)
[2021-12-06] MEDS ORDERED: MORPHINE 2 MG SYG IV PRN (23:00)
[2021-12-06] MEDS ORDERED: VANCOMYCIN PROTOCOL PER PHARMACY IV PRN (23:00)
[2021-12-06] MEDS ORDERED: MORPHINE 4 MG SYG IV PRN (23:00)
[2021-12-06] MEDS ORDERED: VANCOMYCIN 1G/250ML KIT 250 ML IV ONE (23:30)
[2021-12-07 01:15] VITALS: BP 154/73
[2021-12-07 03:56] VITALS: BP 149/68
[2021-12-07] MEDS ORDERED: ZOSYN 3.375GM+NS 50ML 50 ML IV SCH (05:00)
[2021-12-07 05:02] LABS: BASOPHILS % (AUTO) 0.5 % (0.0-5.0); EOSINOPHILS % (AUTO) 1.8 % (0.0-8.0); HEMATOCRIT 24.5 % (42-54); LYMPHOCYTES % (AUTO) 19.1 % (21.0-51.0); MEAN CORPUSCULAR HEMOGLOBIN 27.9 pg (27.0-33.0); MEAN CORPUSCULAR HGB CONC 32.2 g/dL (32.0-36.0); MEAN CORPUSCULAR VOLUME 86.6 fL (79-99); NEUTROPHILS % (AUTO) 70.1 % (40.0-77.0); PLATELET COUNT (AUTO) 251 K/uL (130-400); RED BLOOD CELL COUNT(AUTO) 2.83 MIL/uL (4.50-6.20); WHITE BLOOD COUNT (AUTO) 6.5 K/uL (4.8-10.8)
[2021-12-07 05:12] LABS: INR 1.05 (0.85-1.15); PROTHROMBIN TIME 11.4 SEC (9.6-11.6)
[2021-12-07 05:13] LABS: PARTIAL THROMBOPLASTIN TIME 28.2 SEC (26.3-35.5)
[2021-12-07 05:20] LABS: CREATININE 1.1 mg/dL (0.5-1.5); MAGNESIUM 1.9 mg/dL (1.80-2.40); PHOSPHORUS 3.5 mg/dL (2.5-4.9); POTASSIUM 4.1 mmol/L (3.5-5.1)
[2021-12-07 05:34] LABS: HEMOGLOBIN A1C 7.1 % (4.0-6.0)
[2021-12-07] MEDS ORDERED: INSULIN HUMULIN R 100 UNIT/ML 3ML SQ SCH (07:30)
[2021-12-07 08:00] VITALS: BP 138/66
[2021-12-07] MEDS ORDERED: FAMOTIDINE 20MG VIAL IV SCH (09:00)
[2021-12-07] MEDS ORDERED: METO25TA3 PO (10:56)
[2021-12-07] MEDS ORDERED: ASPI-1005 PO (10:56)
[2021-12-07] MEDS ORDERED: ATOR40TA69 PO (10:56)
[2021-12-07] MEDS ORDERED: AMLO5TAB4 PO (10:56)
[2021-12-07] MEDS ORDERED: CLOP75TA14 PO (10:56)
[2021-12-07] MEDS ORDERED: GLIP5TAB11 PO (10:56)
[2021-12-07] MEDS ORDERED: Calcium Acetate PO (10:56)
[2021-12-07] MEDS ORDERED: LINA5TAB PO (10:56)
[2021-12-07] MEDS ORDERED: CALCIUM AC 667MG CAP PO SCH (12:00)
[2021-12-07] MEDS ORDERED: VANCOMYCIN 1.25 GM/250 ML BAG 250 ML IV SCH (18:00)
[2021-12-07] MEDS ORDERED: ATORVASTATIN 40 MG TABLET PO SCH (21:00)
[2021-12-08] MEDS ORDERED: CLOPIDOGREL 75MG TAB PO SCH (09:00)
[2021-12-08] MEDS ORDERED: LINAGLIPTIN 5 MG TABLET PO SCH (09:00)
[2021-12-08] MEDS ORDERED: ASPIRIN 81MG CHEW TAB PO SCH (09:00)
[2021-12-08] MEDS ORDERED: GLIPIZIDE 5 MG TABLET PO SCH (09:00)
[2021-12-08] MEDS ORDERED: AMLODIPINE 5 MG TAB PO SCH (09:00)
[2021-12-08] MEDS ORDERED: METOPROLOL SUCCINATE 25 MG TAB.SR.24H PO SCH (09:00)
== END 2021-12-07 11:40 | disposition home or self-care (01) | DRG 300 ==
LOC: EDH 20:57 → EDHIP 20:58 → 4BH 12-07 01:07
PROVIDERS: ADMIT Internal Medicine; ATTEND Internal Medicine
DX: E11.52 Type 2 diabetes mellitus with diabetic peripheral angiopathy with gangrene (principal); L03.116 Cellulitis of left lower limb; Z20.822 Contact with and (suspected) exposure to COVID-19; D64.9 Anemia, unspecified; E11.22 Type 2 diabetes mellitus with diabetic chronic kidney disease; E11.319 Type 2 diabetes mellitus with unspecified diabetic retinopathy without macular edema; E11.42 Type 2 diabetes mellitus with diabetic polyneuropathy; E11.65 Type 2 diabetes mellitus with hyperglycemia; E78.00 Pure hypercholesterolemia, unspecified; N18.9 Chronic kidney disease, unspecified; H54.8 Legal blindness, as defined in USA; I12.9 Hypertensive chronic kidney disease with stage 1 through stage 4 chronic kidney disease, or unspecified chronic kidney disease; Z90.49 Acquired absence of other specified parts of digestive tract; Z91.199 Patient's noncompliance with other medical treatment and regimen due to unspecified reason; Z89.512 Acquired absence of left leg below knee; Z89.511 Acquired absence of right leg below knee
CPT/HCPCS: 36415; 71045; 73630; 80048; 80053; 82948; 83036; 83605; 83735; 84100; 84484; 85025; 85610; 85730; 86850; 86900; 86901; 87040; 87635; 93005; G0378; J2543; J3370; J3490